=== PATIENT | female | born 1955 | race Caucasian/White ===

== ENCOUNTER 2020-06-01 05:40 | Outpatient (RCR) | payer MEDICARE ==
[~2020-06-01] VITALS: Ht 167.7 cm; Wt 73.6 kg
[~2020-06-01 05:40] MED LIST: AMLO5TAB9 PO; LEVO25TA5 PO; LISI1TAB25 PO; PRAV40TA2 PO; TURM538C PO; UBID200C16 PO; VENL75TA2 PO
[2020-06-05] MEDS ORDERED: CLIN150C2 PO (11:08)
[2020-06-05] MEDS ORDERED: HYDR-83 PO (11:08)
== END 2020-06-01 13:41 | disposition home or self-care (01) ==
LOC: PREOP 05:40
PROVIDERS: ATTEND Podiatrist Foot & Ankle Surgery
DX: Z01.812 Encounter for preprocedural laboratory examination (principal); Z20.828 Contact with and (suspected) exposure to other viral communicable diseases; M20.11 Hallux valgus (acquired), right foot
CPT/HCPCS: 87635

== ENCOUNTER 2020-06-05 07:59 | Day surgery (SDC) | payer MEDICARE ==
[2020-06-05] VITALS (11 sets, daily range): BP systolic 102–140; BP diastolic 63–91
[~2020-06-05] VITALS: Ht 167.7 cm; Wt 73.6 kg
[2020-06-05] MEDS ORDERED: BUPIVACAINE 0.5% 30 ML (SENSORCAINE) VIAL ONE (08:02)
[2020-06-05] MEDS ORDERED: DEXAMETHASONE 10 MG/ML (DECADRON) 1 ML VIAL ONE ×2 (08:02→09:56)
[2020-06-05] MEDS ORDERED: proPOfol 200 MG/20 ML (DIPRIVAN) VIAL IV ONE ×2 (08:39→08:40)
[2020-06-05] MEDS ORDERED: fentaNYL INJECTION 100 MCG/2 ML AMP ONE (08:40)
[2020-06-05] MEDS ORDERED: MIDAZOLAM 2 MG/2 ML (VERSED) VIAL ONE (08:40)
--- OUTSIDE RECORDS SUMMARY | 2020-06-05 08:41 | XMS REPORT ---
Author Author Ava Velasquez Organization [facility] Address [address] [place], [place] [id number] Care Team Providers Care Pigs Feet Cleaner Name Role Phone Sharon Velasquez PCP Sharon Velasquez PreferredProvider Allergies and Adverse Reactions Name Reaction Notes Augmentin Nausea and Vomiting prednisone Plan of Treatment Not available. Medications Active Name Start Date Estimated Completion Date SIG Co mments coenzyme Q10 100 mg oral capsule amlodipine 5 mg oral tablet take 1 tablet (5 mg) by oral route once daily vit b12 sublingal 1 dropper full under to ngue daily venlafaxine 75 mg oral capsule,extended release 24hr 10/09/2018 TAKE ONE CAPSULE BY MOUTH ONCE DAILY venlafaxine 75 mg oral capsule,extended release 24hr 11/01/2019 TAKE ONE CAPSULE BY MOUTH ONCE DAILY lisinopril-hydrochlorothiazide 20-12.5 mg oral tablet 01/24/2020 1T PO ONCE DAILY levothyroxine 25 mcg oral tablet 01/24/2020 TTD AM O N AN EMPTY STOMACH turmeric 400 mg oral capsule take 1 capsu le by oral route Name Start Date Expiration Date SIG Comments tramadol 50 mg oral tablet clonidine HCl 0.1 mg oral tablet alprazolam 0.5 mg oral tablet atenolol 100 mg oral tablet amlodipine 5 mg oral tablet lisinopril 40 mg oral tablet take 1 table t (40 mg) by oral route once daily ibuprofen 100 mg oral tablet naproxen sodium 220 mg oral capsule niacin oral potassium 99 mg oral tablet Calcium 500 oral triamcinolone acetonide 0.1 % topical cream 03/04/2016 apply a thin layer to the affected area(s) by topical route 2 times per day for no longer than 14 days fish oil 1200 mg oral capsule once daily cyclobenzaprine 10 mg oral tablet 03/25/2017 07/23/2017 take 1 tablet by oral route once a day (at bedtime) for 30 days muscle spasm Pt states she does not use it Tamiflu 75 mg oral capsule 12/23/2017 12/28/2017 take 1 capsule (75 mg) by oral route 2 times per day for 5 days Medrol (Aldair) 4 mg oral tablets,dose pack 07/01/2018 take as directed doxycycline monohydrate 100 mg oral capsule 07/01/201807/08 take 1 capsule by oral route 2 times a day for 7 days Vivlodex 5 mg oral capsule take 1 capsule (5 mg) by oral route once daily Bactrim DS 800-160 mg oral tablet 04/30/2019 05/03/2019 take 1 tablet by oral route 2 times a day for 3 days Keflex 500 mg oral capsule 05/19/2019 05/26/2019 take 1 capsule (500 mg) by oral route every 12 hours for 7 days hydrocodone-acetaminophen 5-325 mg oral tablet 05/19/2019 take 1 tablet by oral route every 6 hours as needed for pain for 7 days Discontinued Name Start Date Discontinued Date SIG Comments magnesium oral 06/05/2016 Tribenzor oral 06/05/2016 medication ch cipriano losartan-hydrochlorothiazide 100-25 mg oral tablet 03/31/2019 take 1 tablet by oral route once daily on recall niacin oral 05/29/2020 One-A-Day Womens Formula oral 01/02/2017 diclofenac sodium 75 mg oral tablet,delayed release (DR/EC) 09/18/2017 12/23/2017 take 1 tablet (75 mg) by oral route 2 times per day as needed pt states she does not use it promethazine-codeine 6.25-10 mg/5 mL oral syrup 12/23/2017 04/03/2018 take 5 milliliters by oral route every 6 hours as needed, not to exceed 30 mL in 24 hours fluticasone 50 mcg/actuation nasal spray,suspension 12/23/2017 04/03/2018 spray 1 spray (50 mcg) in each nostril by intranasal route 2 times per day pravastatin 40 mg oral tablet 05/29/2020 Lidoderm 5 % topical adhesive patch,medicated 01/05/201905/29/2020 apply 1 patch by transdermal route once daily (May wear up to 12hours.) Vivlodex 10 mg oral capsule 01/14/2019 05/29/2020 take 1 capsule (10 mg) by oral route once daily Medrol (Aldair) 4 mg oral tablets,dose pack 03/31/2019 05/29/2020 take as directed tizanidine 2 mg oral tablet 03/31/2019 05/29/2020 take 1 tablet (2 mg) by oral route every 8 hours as needed Synthroid 25 mcg oral tablet 04/20/2019 05/29/2020 alban e 1 tablet (25 mcg) by oral route every AM on an empty stomach ofloxacin 0.3 % ophthalmic (eye) drops 04/30/2019 05/29/2020 instill 1 drop into affected eye(s) by ophthalmic route 4 times per day Macrobid 100 mg oral capsule 05/14/2019 05/29/2020 alban e 1 capsule (100 mg) by oral route every 12 hours with food tramadol 50 mg oral tablet 05/17/2019 05/29/2020 take 1 tablet (50 mg) by oral route every 6 hours as needed prednisone 20 mg oral tablet 05/21/2019 05/29/2020 Alban e 1 tab daily x 3 days, then 1/2 tab daily x 3 days Problem List Description Status Onset Hyperlipidemia Active GERD (gastroesophageal reflux disease) Active Depressive disorder Active Anxiety disorder Active Essential Hypertension Active Elevated TSH Active 06/26/2016 Subclinical hypothyroidism Active 03/17/2017 Osteoarthritis of right hand, unspecified osteoarthritis typ e Active 11/21/2017 Acute pain of left shoulder Active 01/14/2019 Polyarthralgia Active 01/14/2019 Vital Signs Date Time BP-Sys(mm[Hg] BP-Nikki(mm[Hg]) HR(bpm) RR(rpm) Temp WT HT HC BMI BSA BMI Percentile O2 Sat(%) 05/29/2020 11:20:00 AM 124 mm[Hg] 82 mm[Hg] 81 {beats}/min 14 rpm 97.7 F 162.5 lbs 66 in 26.2279 kg/m2 1.8527 m2 98 % 05/19/2019 2:35:00 PM 144 mm[Hg] 86 mm[Hg] 85 {beats}/min 98.1 F 16 5.25 lbs 98 % 05/14/2019 8:56:00 AM 130 mm[Hg] 82 mm[Hg] 73 {beats}/min 14 rpm 97.9 F 164.5 lbs 97 % 04/30/2019 10:07:00 AM 140 mm[Hg] 90 mm[Hg] 84 {beats}/min 14 rpm 98.1 F 164 lbs 99 % 03/31/2019 10:05:00 AM 122 mm[Hg] 84 mm[Hg] 71 {beats}/min 14 rpm 97.9 F 165 lbs 97 % 01/14/2019 8:55:00 AM 126 mm[Hg] 82 mm[Hg] 80 {beats}/min 14 rpm 97.7 F 165.75 lbs 65 in 27.582 kg/m2 1.8569 m2 96 % 01/05/2019 9:05:00 AM 122 mm[Hg] 90 mm[Hg] 78 {beats}/min 20 rpm 97.7 F 165 lbs 97 % 07/01/2018 11:34:00 AM 144 mm[Hg] 88 mm[Hg] 76 {beats}/min 18 rpm 98.4 F 159.5 lbs 65 in 26.5419 kg/m2 1.8215 m2 98 % 06/08/2018 4:00:00 PM 136 mm[Hg] 82 mm[Hg] 83 {beats}/min 18 rpm 97.9 F 161.5 lbs 65.5 in 26.47 kg/m2 1.84 m2 97 % 05/04/2018 10:45:00 AM 122 mm[Hg] 78 mm[Hg] 77 {beats}/min 18 rpm 98.1 F 160.25 lbs 66 in 25.8648 kg/m2 1.8398 m2 97 % 04/03/2018 8:58:00 AM 128 mm[Hg] 72 mm[Hg] 76 {beats}/min 17 rpm 96.9 F 162.25 lbs 66 in 26.19 kg/m2 1.85 m2 98 % 12/23/2017 9:26:00 AM 138 mm[Hg] 68 mm[Hg] 111 {beats}/min 16 rpm 99.1 F 161 lbs 66 in 25.9858 kg/m2 1.8441 m2 96 % 08/21/2017 2:49:00 PM 128 mm[Hg] 72 mm[Hg] 80 {beats}/min 16 rpm 97 F 156 lbs 66 in 25.18 kg/m2 1.82 m2 98 % 03/25/2017 10:56:00 AM 132 mm[Hg] 86 mm[Hg] 72 {beats}/min 16 rpm 97.7 F 162 lbs 66 in 26.1472 kg/m2 1.8498 m2 97 % 01/02/2017 10:46:00 AM 128 mm[Hg] 78 mm[Hg] 76 {beats}/min 12 rpm 96.9 F 157.5 lbs 66 in 25.42 kg/m2 1.82 m2 99 % 06/26/2016 9:37:00 AM 140 mm[Hg] 80 mm[Hg] 76 {beats}/min 14 rpm 96.6 F 151.5 lbs 66 in 24.4525 kg/m2 1.7889 m2 99 % 06/04/2016 8:31:00 AM 110 mm[Hg] 62 mm[Hg] 75 {beats}/min 20 rpm 96.8 F 154 lbs 66 in 24.86 kg/m2 1.80 m2 98 % 03/04/2016 2:44:00 PM 91 {beats}/min 20 rpm 97.6 F 153 lbs 66 i n 24.6946 kg/m2 1.7977 m2 97 % 02/10/2016 12:44:00 PM 66 {beats}/min 20 rpm 97.2 F 154.8 lbs 99 % 04/27/2015 9:35:00 AM 120 mm[Hg] 60 mm[Hg] 73 {beats}/min 18 rpm 96.6 F 160.25 lbs 66 in 25.86 kg/m2 1.84 m2 97 % Social History Name Description Comments Alcohol Current every day Tobacco Former smoker History of Procedures Date Ordered Description Order Status 02/10/2016 12:00 AM THER/PROPH/DIAG INJ SC/IM Reviewed 02/10/2016 12:00 AM Decadron, Per 1 Mg [facility]# [address]-17 Re viewed 02/10/2016 12:00 AM Depo-Medrol 40mg Reviewed 06/11/2016 12:00 AM ROUTINE VENIPUNCTURE Reviewed 06/11/2016 12:00 AM GENERAL HEALTH PANEL Reviewed 06/11/2016 12:00 AM LIPID PANEL Reviewed 06/11/2016 12:00 AM ALBUMIN URINE MICROALBUMIN RAFAELATIVE Moe virk 06/18/2016 12:00 AM ROUTINE VENIPUNCTURE Reviewed 06/18/2016 12:00 AM ASSAY THYROID STIM HORMONE Reviewed 06/18/2016 12:00 AM ASSAY OF FREE THYROXINE Reviewed 11/20/2016 12:00 AM COLLECTION VENOUS BLOOD VENIPUNCTURE Rev iewed 12/27/2016 12:00 AM ROUTINE VENIPUNCTURE Reviewed 03/24/2017 12:00 AM ROUTINE VENIPUNCTURE Reviewed 03/24/2017 12:00 AM COMPLETE CBC W/AUTO DIFF WBC Reviewed 03/24/2017 12:00 AM COMPREHEN METABOLIC PANEL Reviewed 03/24/2017 12:00 AM ASSAY THYROID STIM HORMONE Reviewed 03/24/2017 12:00 AM ASSAY OF FREE THYROXINE Reviewed 03/24/2017 12:00 AM C-REACTIVE PROTEIN Reviewed 03/24/2017 12:00 AM RBC SED RATE AUTOMATED Reviewed 12/23/2017 10:03 AM INFLUENZA A/B AG EIA Reviewed 04/03/2018 12:00 AM CHEST X-RAY 2VW FRONTAL&LATL Reviewed 04/03/2018 12:00 AM MAMMOGRAPHY SCREENING, BILATERAL Reviewe d 05/04/2018 12:00 AM US BREAST UNI REAL TIME WITH IMAGE LIMIT ED Reviewed 05/04/2018 12:00 AM COMPLETE CBC W/AUTO DIFF WBC Reviewed 05/04/2018 12:00 AM COMPREHEN METABOLIC PANEL Reviewed 05/04/2018 12:00 AM ASSAY THYROID STIM HORMONE Reviewed 05/04/2018 12:00 AM LIPID PANEL Reviewed 05/04/2018 12:00 AM ASSAY OF BLOOD LIPOPROTEIN Reviewed 05/04/2018 12:00 AM ASSAY OF FREE THYROXINE Reviewed 01/05/2019 12:00 AM RADEX SHOULDER COMPLETE MINIMUM 2 VIEWS Reviewed 01/14/2019 12:00 AM ROUTINE VENIPUNCTURE Reviewed 01/14/2019 12:00 AM URINALYSIS AUTO W/SCOPE Reviewed 01/14/2019 12:00 AM COMPLETE CBC W/AUTO DIFF WBC Reviewed 01/14/2019 12:00 AM COMPREHEN METABOLIC PANEL Reviewed 01/14/2019 12:00 AM RBC SED RATE AUTOMATED Reviewed 01/14/2019 12:00 AM C-REACTIVE PROTEIN Reviewed 01/14/2019 12:00 AM ANTINUCLEAR ANTIBODIES Reviewed 01/14/2019 12:00 AM ASSAY OF BLOOD/URIC ACID Reviewed 01/14/2019 12:00 AM CCP ANTIBODY Reviewed 01/14/2019 12:00 AM RHEUMATOID FACTOR QUANT Reviewed 01/15/2019 12:00 AM ASSAY THYROID STIM HORMONE Reviewed 01/20/2019 12:00 AM URNLS DIP STICK/TABLET REAGENT AUTO MICR OSCOPY Reviewed 03/31/2019 12:00 AM ASSAY OF TOTAL THYROXINE Reviewed 03/31/2019 12:00 AM ASSAY OF THYROID (T3 OR T4) Reviewed 04/30/2019 10:32 AM URINALYSIS AUTO W/O SCOPE Reviewed 04/30/2019 12:00 AM URINE CULTURE/COLONY COUNT Reviewed 04/30/2019 12:00 AM URINE BACTERIA CULTURE Reviewed 05/14/2019 9:04 AM URINALYSIS AUTO W/O SCOPE Reviewed 05/14/2019 12:00 AM URINE BACTERIA CULTURE Reviewed 05/14/2019 12:00 AM RADEX FOOT COMPLETE MINIMUM 3 VIEWS Revi ewed 05/19/2019 12:00 AM RBC SED RATE AUTOMATED Reviewed 05/19/2019 12:00 AM COMPLETE CBC W/AUTO DIFF WBC Reviewed 05/19/2019 12:00 AM ASSAY OF BLOOD/URIC ACID Reviewed 05/19/2019 12:00 AM COMPREHEN METABOLIC PANEL Reviewed Results Summary Date and Description Results 06/11/2016 3:07 PM WBC 6.9 RBC 4.03 HGB 13.60 g /dLHCT 40.50 %MCV 101.0 fLMCH 33.70 pgMCHC 33.60 g/dLRDW SD 48 RDW CV 12.70 %MPV 10.0 fLPLT 338 NRBC# 0.00 NRBC% 0.0 %NEUT 46.90 %%LYMP 42.20 %%MONO 7.30 %%EOS 3.20 %%BASO 0.40 %#NEUT 3.23 #LYMP 2.90 #MONO 0.50 #EOS 0.22 #BASO 0.03 MANUAL DIFF NOT IND MICROALBUMIN UR 5.0 ug/mLGLUCOSE 95.0 mg/dLSODIUM 139.0 mmol/LPOTASSIUM 4.70 mmol/LCHLORIDE 101.0 mmol/LCO2 29.0 mmol/LBUN 13.0 mg/dLCREATININE 0.90 mg/dLSGOT/AST 17.0 IU/LSGPT/ALT 16.0 IU/LALK PHOS 82.0 IU/LTOTAL PROTEIN 6.90 g/dLALBUMIN 4.30 g/dLTOTAL BILI 0.40 mg/dLCALCIUM 9.60 mg/dLAGE 61 GFR NonAA 63 GFR AA 76 eGFR >60 mL/min/1.73 m2eGFR AA* >60 TRIGLYCERIDES 276.0 mg/dLCHOLESTEROL 268.0 mg/dLHDL 49.0 mg/dLTOT CHOL/HDL 5.5 LDL (CALC) 164.0 mg/dLTSH 5.980 uIU/mL 06/18/2016 3:14 PM FREE T4 0.75 TSH 4.610 uIU/m L 03/24/2017 3:52 PM FREE T4 0.77 TSH 5.620 uIU/m L 03/24/2017 3:53 PM WBC 6.9 RBC 3.86 HGB 12.90 g /dLHCT 38.60 %MCV 100.0 fLMCH 33.40 pgMCHC 33.40 g/dLRDW SD 49 RDW CV 13.20 %MPV 10.10 fLPLT 310 NRBC# 0.00 NRBC% 0.0 %NEUT 44.70 %%LYMP 44.40 %%MONO 6.80 %%EOS 3.30 %%BASO 0.70 %#NEUT 3.10 #LYMP 3.08 #MONO 0.47 #EOS 0.23 #BASO 0.05 MANUAL DIFF NOT IND C REACTIVE PROTEIN <0.5 MG/DLGLUCOSE 99.0 mg/dLSODIUM 143.0 mmol/LPOTASSIUM 4.50 mmol/LCHLORIDE 105.0 mmol/LCO2 28.0 mmol/LBUN 13.0 mg/dLCREATININE 0.90 mg/dLS GOT/AST 19.0 IU/LSGPT/ALT 21.0 IU/LALK PHOS 62.0 IU/LTOTAL PROTEIN 6.80 g/dLALBUMIN 4.10 g/dLTOTAL BILI 0.40 mg/dLCALCIUM 9.10 mg/dLAGE 62 GFR NonAA 63 GFR AA 76 eGFR >60 mL/min/1.73 m2eGFR AA* >60 SEDRATE 14.0 mm/hr 12/23/2017 10:03 AM Influenza A POSITIVE Influen za B NEGATIVE 05/06/2018 9:10 AM GLUCOSE 104.0 mg/dLSODIUM 14 1.0 mmol/LPOTASSIUM 3.90 mmol/LCHLORIDE 104.0 mmol/LCO2 27.0 mmol/LBUN 17.0 mg/dLCREATININE 0.80 mg/dLSGOT/AST 23.0 IU/LSGPT/ALT 23.0 IU/LALK PHOS 76.0 IU/LTOTAL PROTEIN 7.10 g/dLALBUMIN 4.30 g/dLTOTAL BILI 0.50 mg/dLCALCIUM 9.90 mg/dLAGE 63 GFR NonAA 72 GFR AA 87 eGFR 72 eGFR AA* >60 TRIGLYCERIDES 161.0 mg/dLCHOLESTEROL 201.0 mg/dLHDL 50.0 mg/dLTOT CHOL/HDL 4.0 LDL 118.0 mg/dLWBC 6.0 RBC 3.99 HGB 13.20 g/dLHCT 39.20 %MCV 98.0 fLMCH 33.10 pgMCHC 33.70 g/dLRDW SD 46 RDW CV 12.90 %MPV 9.10 fLPLT 292 NRBC# 0.00 NRBC% 0.0 %NEUT 41.80 %%LYMP 45.10 %%MONO 8.0 %%EOS 4.20 %%BASO 0.70 %#NEUT 2.51 #LYMP 2.70 #MONO 0.48 #EOS 0.25 #BASO 0.04 MANUAL DIFF NOT IND FREE T4 0.78 TSH 4.90 uIU/mL 01/14/2019 9:44 AM SEDRATE 18 RA Factor <15.0 G LUCOSE 101 SODIUM 139 POTASSIUM 3.9 CHLORIDE 101.0 mmol/LCO2 28 BUN 17.0 mg/dLCREATININE 0.80 mg/dLSGOT/AST 23 SGPT/ALT 22 ALK PHOS 78 TOTAL PROTEIN 7.6 ALBUMIN 4.9 TOTAL BILI 0.5 CALCIUM 10.10 mg/dLAGE 63 GFR NonAA 72 GFR AA 87 eGFR 72 eGFR AA* >60 mL/min/1.73 m2C REACTIVE PROTEIN <0.5 MG/DLURIC ACID 6.2 WBC 6.3 RBC 4.23 HGB 13.90 g/dLHCT 41.70 %MCV 99.0 fLMCH 32.90 pgMCHC 33.30 g/dLRDW SD 46 fLRDW CV 12.70 %MPV 9.80 fLPLT 338 NRBC# 0.00 NRBC% 0.0 %NEUT 47.1 %LYMP 41.0 %MONO 7.2 %EOS 3.8 %BASO 0.6 #NEUT 2.94 #LYMP 2.56 #MONO 0.45 #EOS 0.24 #BASO 0.04 MANUAL DIFF NOT IND COLOR YELLOW APPEARANCE CLEAR SPEC GRAV 1.020 pH 6.0 PROTEIN NEGATIVE GLUCOSE NEGATIVE KETONE NEGATIVE BILIRUBIN NEGATIVE BLOOD TRACE-INTACT NITRITE NEGATIVE LEUK SCREEN SMALL WBC/HPF 0-5 RBC/HPF NEGATIVE CASTS/LPF NEGATIVE CRYSTALS NEGATIVE MUCOUS THRDS 1+ BACTERIA 1+ EPITH CELLS 1+ SQUAMOUS TRICHOMONAS NEGATIVE YEAST NEGATIVE CULT SET UP? YES TSH 6.66 CCP Antibodies IgG/IgA 5 Antinuclear Antibodies,IFA Negative 01/20/2019 3:49 PM COLOR YELLOW APPEARANCE SL C LOUDY SPEC GRAV 1.015 pH 7.5 PROTEIN NEGATIVE GLUCOSE NEGATIVE KETONE NEGATIVE BILIRUBIN NEGATIVE BLOOD NEGATIVE NITRITE NEGATIVE LEUK SCREEN NEGATIVE WBC/HPF NEGATIVE RBC/HPF NEGATIVE CASTS/LPF NEGATIVE CRYSTALS NEGATIVE MUCOUS THRDS NEGATIVE BACTERIA FEW EPITH CELLS 2++ SQUAMOUS TRICHOMONAS NEGATIVE YEAST NEGATIVE CULT ORDERED YES 03/31/2019 10:32 AM FREE T4 0.79 TSH 1.65 04/30/2019 10:32 AM Clarity Ur yellow Urine-[place] r cloudy Glucose Ur-sCnc negative Bilirub Ur Ql negative Ketones Ur Ql Strip negative Sp Gr Ur Qn 1.025 Hgb Ur Ql Strip moderate pH Ur-LsCnc 5.5 Prot Ur Ql Strip negative Urobilinogen Ur-mCnc 0.2 Nitrite Ur Ql Strip negative WBC # Ur small 05/14/2019 9:04 AM Clarity Ur slightly Urine-Co shira dark Glucose Ur-sCnc negative Bilirub Ur Ql small Ketones Ur Ql Strip negative Sp Gr Ur Qn 1.025 Hgb Ur Ql Strip small pH Ur-LsCnc 5.5 Prot Ur Ql Strip 30 Urobilinogen Ur-mCnc 0.2 Nitrite Ur Ql Strip negative WBC # Ur trace 05/19/2019 10:06 AM URIC ACID 5.8 WBC 7.5 RBC 3. 97 HGB 13.40 g/dLHCT 40.20 %MCV 101.0 fLMCH 33.80 pgMCHC 33.30 g/dLRDW SD 48 fLRDW CV 12.70 %MPV 10.70 fLPLT 361 NRBC# 0.00 NRBC% 0.0 %NEUT 51.8 %LYMP 37.2 %MONO 7.4 %EOS 2.8 %BASO 0.5 #NEUT 3.89 #LYMP 2.80 #MONO 0.56 #EOS 0.21 #BASO 0.04 MANUAL DIFF NOT IND GLUCOSE 101 SODIUM 142 POTASSIUM 3.9 CHLORIDE 102.0 mmol/LCO2 29 BUN 16.0 mg/dLCREATININE 0.850 mg/dLSGOT/AST 20 SGPT/ALT 16 ALK PHOS 83 TOTAL PROTEIN 7.3 ALBUMIN 4.4 TOTAL BILI 0.3 CALCIUM 9.90 mg/dLAGE 64 GFR NonAA 67 GFR AA 81 eGFR 67 eGFR AA* >60 mL/min/1.73 [id number] History Of Immunizations Name Date Admin Mfg Name Mfg Code Trade Name Lot# Route Inj Vis Given Vis Pub CVX Influenza 10/15/2019 Not Entered NE Fluad [id number] Intramuscular R ight Arm 11/12/2019 11/24/2019 135 History of Past Illness Name Date of Onset Comments Anxiety disorder Depressive disorder Essential Hypertension GERD (gastroesophageal reflux disease) Hyperlipidemia Elevated TSH 06/26/2016 Subclinical hypothyroidism 03/17/2017 currently asy mptomaticrecommend repeating TSH and free T4 in six months Osteoarthritis of right hand, unspecified osteoarthritis typ e 11/21/2017 Last Mammogram 04/03/18 04/03/18--Negative Mastalgia 07/22/18 maryann luevano w / trial of lidoderm she will f/u in 3 mo. Acute pain of left shoulder 01/14/2019 Polyarthralgia 01/14/2019 Hyperlipidemia Apr 27 2015 9:37AM GERD (gastroesophageal reflux disease) Apr 27 2015 9:37AM Depressive Disorder Apr 27 2015 9:37AM Anxiety disorder Apr 27 2015 9:37AM Essential Hypertension Apr 27 2015 9:37AM Contact Dermatitis Feb 10 2016 12:49PM Allergic contact dermatitis due to plants, except food Feb 222015 2:46PM Depressive Disorder Jun 04 2016 8:33AM Essential hypertension Jun 11 2016 8:23AM Screening for lipid disorders Jun 11 2016 8:23AM Abnormal thyroid function test Jun 18 2016 11:11AM Elevated TSH Jun 26 2016 9:40AM Hypertension Nov 20 2016 2:02PM Hyperlipemia Nov 20 2016 2:02PM Hypertension Dec 27 2016 8:15AM Hyperlipidemia Dec 27 2016 8:15AM Hypothyroidism, Acquired Dec 27 2016 8:15AM Subclinical hypothyroidism Jan 02 2017 10:49AM Abnormal thyroid function test Mar 24 2017 11:28AM Headache Mar 24 2017 11:28AM Acute intractable headache, unspecified headache type Mar 25 2017 10:58AM Osteoarthritis of right hand, unspecified osteoarthrit is type Aug 21 2017 2:52PM Influenza A Dec 23 2017 9:30AM Mastodynia of right breast Apr 03 2018 9:01AM Chest wall pain Apr 03 2018 9:01AM Right Mastodynia Apr 03 2018 9:01AM Breast Mass May 04 2018 10:48AM Right Mastodynia May 04 2018 10:48AM Subclinical hypothyroidism May 04 2018 11:40AM Hyperlipidemia May 04 2018 11:40AM Essential Hypertension May 04 2018 11:40AM Medication monitoring encounter May 04 2018 11:40AM Right Mastodynia Jun 09 2018 3:07PM Toxic effect of venom of other arthropod , accidental (unintentional), initial encounter Jul 01 2018 11:35AM Pain in joint of left shoulder Jan 05 2019 9:08AM Tendinitis of left rotator cuff Jan 05 2019 9:08AM Polyarthralgia Jan 14 2019 8:58AM Acute pain of left shoulder Jan 14 2019 8:58AM Polyarthralgia Jan 14 2019 10:11AM Medication monitoring encounter Jan 14 2019 10:11AM Polyarthralgia Jan 15 2019 12:56PM Hematuria Jan 20 2019 11:47AM Lumbar strain Mar 31 2019 10:08AM Hypothyroid Mar 31 2019 10:08AM Hypertension Mar 31 2019 10:08AM Cystitis, Acute Apr 30 2019 10:09AM Acute bacterial conjunctivitis of left eye Apr 30 2019 10:09 AM Pyuria May 14 2019 8:58AM Foot pain, right May 14 2019 8:58AM Joint pain May 19 2019 2:38PM Joint swelling May 19 2019 2:38PM Right foot pain May 19 2019 2:38PM Surgical Risk Stratification (Preoperative Examination) May 29 2020 11:29AM Payers Insurance Name Company Name Plan Name Plan Number Policy Number Jimmie cy Group Number Start Date Medicare RH Medicare [facility] [id number] N/ A BC[employer] [place] [id number] [facility], 2015 Medicare Part A Medicare - Lab/Xray [id number] N/A Medicare Part B Medicare [facility] [id number] N/A [employer] [place] void N/A [employer] [place] void N/A History of Encounters Visit Date Visit Type Provider 05/29/2020 Office visit Sharon COLE RN 09/02/2019 [facility] Mery Godfrey MD 05/19/2019 Office visit Sharon COLE RN 05/14/2019 Office visit Sharon COLE RN 04/30/2019 Office visit Sharon COLE RN 03/31/2019 Office visit Sharon COLE RN 01/20/2019 Laboratory Candace Farias [employer] 01/14/2019 Office visit Candace Farias [employer] 01/05/2019 Office visit Candace Farias [employer] 07/01/2018 Office visit Candace Farias [employer] 06/08/2018 Office visit Candace Farias [employer] 05/04/2018 Office visit Candace Farias [employer] 04/03/2018 Office visit Candace Farias [employer] 12/23/2017 Office visit LIZETTE HOFFMAN DIETITIAN ASSISTANT 08/21/2017 Office visit Candace Farias [employer] 03/25/2017 Office visit Candace Farias [employer] 03/24/2017 Laboratory Candace Farias [employer] 01/02/2017 Office visit Candace Farias [employer] 12/27/2016 Laboratory Candace Farias [employer] 09/30/2016 Laboratory Candace Farias [employer] 06/26/2016 Office visit Candace Farias [employer] 06/18/2016 Laboratory LIZETTE HOFFMAN DIETITIAN ASSISTANT 06/11/2016 Laboratory Candace Farias [employer] 06/04/2016 Office visit Candace Farias [employer] 03/04/2016 Office visit Candace Farias [employer] 02/10/2016 Office visit Alexandra Gil DIETITIAN ASSISTANT 04/27/2015 Office visit LIZETTE HOFFMAN DIETITIAN ASSISTANT 11/10/2014 Office visit De Kevin MD
--- OUTSIDE RECORDS SUMMARY | 2020-06-05 08:42 | XMS REPORT ---
Author Ava Taylor Organization [facility] Address [address] [place], [place] [id number] Care Team Providers Care Manager Assessment Name Role Phone Sharon Velasquez PCP Sharon Velasquez PreferredProvider Allergies and Adverse Reactions Name Reaction Notes Augmentin Nausea and Vomiting prednisone Plan of Treatment Planned Activity Comments Planned Date Planned Time Plan/Goal ESR 05/19/2019 12:00 AM CBC W/ AUTO DIFF (RFLX MAN DIFF IF IND). 05/19/2019 12:00 AM URIC ACID. 05/19/2019 12:00 AM CMP 05/19/2019 12:00 AM Medications Active Name Start Date Estimated Completion Date SIG Co mments coenzyme Q10 100 mg oral capsule amlodipine 5 mg oral tablet take 1 tablet (5 mg) by oral route once daily niacin oral vit b12 sublingal 1 dropper full under to ngue daily pravastatin 40 mg oral tablet venlafaxine 75 mg oral capsule,extended release 24hr 10/09/2018 TAKE ONE CAPSULE BY MOUTH ONCE DAILY Lidoderm 5 % topical adhesive patch,medicated 01/05/2019 apply 1 patch by transdermal route once daily (May wear up to 12hours.) Vivlodex 10 mg oral capsule 01/14/2019 take 1 capsule (10 mg) by oral route once daily lisinopril-hydrochlorothiazide 20-12.5 mg oral tablet 03/31/2019 06/29/2019 take 1 tablet by oral route once daily for 30 days Medrol (Aldair) 4 mg oral tablets,dose pack 03/31/2019 take as directed tizanidine 2 mg oral tablet 03/31/2019 take 1 tablet (2 mg) by oral route every 8 hours as needed Synthroid 25 mcg oral tablet 04/20/2019 alban e 1 tablet (25 mcg) by oral route every AM on an empty stomach ofloxacin 0.3 % ophthalmic (eye) drops 04/30/2019 instill 1 drop into affected eye(s) by ophthalmic route 4 times per day Macrobid 100 mg oral capsule 05/14/2019 alban e 1 capsule (100 mg) by oral route every 12 hours with food tramadol 50 mg oral tablet 05/17/2019 take 1 tablet (50 mg) by oral route every 6 hours as needed Keflex 500 mg oral capsule 05/19/2019 05/26/2019 take 1 capsule (500 mg) by oral route every 12 hours for 7 days prednisone 20 mg oral tablet 05/19/2019 Take 1 tab b y mouth BID for 5 days hydrocodone-acetaminophen 5-325 mg oral tablet 05/19/2019 take 1 tablet by oral route every 6 hours as needed for pain for 7 days Name Start Date Expiration Date SIG Comments [...] 2 times a day for 3 days Discontinued Name Start Date Discontinued Date SIG Comments magnesium oral 06/05/2016 Tribenzor oral 06/05/2016 medication ch cipriano losartan-hydrochlorothiazide 100-25 mg oral tablet 03/31/2019 take 1 tablet by oral route once daily on recall One-A-Day Womens Formula oral 01/02/2017 diclofenac sodium [...] by intranasal route 2 times per day Problem List Description Status Onset Hyperlipidemia Active [...] HC BMI BSA BMI Percentile O2 Sat(%) 05/19/2019 2:35:00 PM 144 mmHg 86 mmHg 85 bpm 98.1 F 165.25 lbs 98 % 05/14/2019 8:56:00 AM 130 mmHg 82 mmHg 73 bpm 14 rpm 97.9 F 164.5 lbs 97 % 04/30/2019 10:07:00 AM 140 mmHg 90 mmHg 84 bpm 14 rpm 98.1 F 164 lbs 99 % 03/31/2019 10:05:00 AM 122 mmHg 84 mmHg 71 bpm 14 rpm 97.9 F 165 lbs 97 % 01/14/2019 8:55:00 AM 126 mmHg 82 mmHg 80 bpm 14 rpm 97.7 F 165.75 lbs 65 i n 27.582 kg/m 1.8569 m 96 % 01/05/2019 9:05:00 AM 122 mmHg 90 mmHg 78 bpm 20 rpm 97.7 F 165 lbs 97 % 07/01/2018 11:34:00 AM 144 mmHg 88 mmHg 76 bpm 18 rpm 98.4 F 159.5 lbs 65 in 26.5419 kg/m 1.8215 m 98 % 06/08/2018 4:00:00 PM 136 mmHg 82 mmHg 83 bpm 18 rpm 97.9 F 161.5 lbs 65.5 in 26.47 kg/m2 1.84 m2 97 % 05/04/2018 10:45:00 AM 122 mmHg 78 mmHg 77 bpm 18 rpm 98.1 F 160.25 lbs 66 in 25.8648 kg/m 1.8398 m 97 % 04/03/2018 8:58:00 AM 128 mmHg 72 mmHg 76 bpm 17 rpm 96.9 F 162.25 lbs 66 i n 26.19 kg/m2 1.85 m2 98 % 12/23/2017 9:26:00 AM 138 mmHg 68 mmHg 111 bpm 16 rpm 99.1 F 161 lbs 66 in 25.9858 kg/m 1.8441 m 96 % 08/21/2017 2:49:00 PM 128 mmHg 72 mmHg 80 bpm 16 rpm 97 F 156 lbs 66 in 25.18 kg/m2 1.82 m2 98 % 03/25/2017 10:56:00 AM 132 mmHg 86 mmHg 72 bpm 16 rpm 97.7 F 162 lbs 66 in 26.1472 kg/m 1.8498 m 97 % 01/02/2017 10:46:00 AM 128 mmHg 78 mmHg 76 bpm 12 rpm 96.9 F 157.5 lbs 66 in 25.42 kg/m2 1.82 m2 99 % 06/26/2016 9:37:00 AM 140 mmHg 80 mmHg 76 bpm 14 rpm 96.6 F 151.5 lbs 66 in 24.4525 kg/m 1.7889 m 99 % 06/04/2016 8:31:00 AM 110 mmHg 62 mmHg 75 bpm 20 rpm 96.8 F 154 lbs 66 in 24.86 kg/m2 1.80 m2 98 % 03/04/2016 2:44:00 PM 91 bpm 20 rpm 97.6 F 153 lbs 66 in 24.6946 kg/m 1.7977 m 97 % 02/10/2016 12:44:00 PM 66 bpm 20 rpm 97.2 F 154.8 lbs 99 % 04/27/2015 9:35:00 AM 120 mmHg 60 mmHg 73 bpm 18 rpm 96.6 F 160.25 lbs 66 in 25.86 kg/m2 1.84 m2 97 % Social History Name Description Comments Alcohol Current every day Tobacco Former smoker History of Procedures Date Ordered Description Order Status 02/10/2016 12:00 AM THER/PROPH/DIAG INJ SC/IM Reviewed 02/10/2016 12:00 AM Decadron, Per 1 Mg [facility]# [id number] Re viewed 02/10/2016 12:00 AM Depo-Medrol 40mg Reviewed 06/11/2016 12:00 AM ROUTINE VENIPUNCTURE Reviewed 06/11/2016 12:00 AM GENERAL HEALTH PANEL Reviewed 06/11/2016 12:00 AM LIPID PANEL Reviewed 06/11/2016 12:00 AM ALBUMIN URINE MICROALBUMIN QUANTIATIVE R eviewed 06/18/2016 12:00 AM ROUTINE VENIPUNCTURE Reviewed 06/18/2016 [...] Reviewed 05/14/2019 12:00 AM URINE BACTERIA CULTURE Returned 05/14/2019 12:00 AM RADEX FOOT COMPLETE MINIMUM 3 VIEWS Retu rned Results Summary Date and Description Results 06/11/2016 [...] NonAA 63 GFR AA 76 eGFR >60 mL/min/1.73meGFR AA* >60 TRIGLYCERIDES 276.0 mg/dLCHOLESTEROL 268.0 mg/dLHDL [...] DIFF NOT IND C REACTIVE PROTEIN <0.5 mg/LGLUCOSE 99.0 mg/dLSODIUM 143.0 mmol/LPOTASSIUM 4.50 mmol/LCHLORIDE 105.0 mmol/LCO2 28.0 mmol/LBUN 13.0 mg/dLCREATININE 0.90 mg/dLSG OT/AST 19.0 IU/LSGPT/ALT 21.0 IU/LALK PHOS 62.0 IU/LTOTAL PROTEIN 6.80 g/dLALBUMIN 4.10 g/dLTOTAL BILI 0.40 mg/dLCALCIUM 9.10 mg/dLAGE 62 GFR NonAA 63 GFR AA 76 eGFR >60 mL/min/1.73meGFR AA* >60 SEDRATE 14.0 mm/hr 12/23/2017 10:03 [...] LUCOSE 101 SODIUM 139 POTASSIUM 3.9 CHLORIDE 101 CO2 28 BUN 17 CREATININE 0.8 SGOT/AST 23 SGPT/ALT 22 ALK PHOS 78 TOTAL PROTEIN 7.6 ALBUMIN 4.9 TOTAL BILI 0.5 CALCIUM 10.1 AGE 63 GFR NonAA 72 GFR AA 87 eGFR 72 eGFR AA* >60 C REACTIVE PROTEIN <0.5 URIC ACID 6.2 WBC 6.3 RBC 4.23 HGB 13.9 HCT 41.7 MCV 99 MCH 32.9 MCHC 33.3 RDW SD 46 RDW CV 12.7 MPV 9.8 PLT 338 NRBC# 0.00 NRBC% 0.0 %NEUT 47.1 [...] 1.65 04/30/2019 10:32 AM Clarity Ur yellow Urine-[place] r cloudy Glucose Ur-sCnc negative Bilirub Ur [...] Ql Strip negative WBC # Ur trace History Of Immunizations Not available. History of Past Illness Name Date of [...] Right foot pain May 19 2019 2:38PM Payers Insurance Name Company Name Plan Name Plan Number Policy Number Jimmie cy Group Number Start Date Medicare RHC Medicare RHC [id number] N/ A Medicare Part A Medicare - Lab/Xray [id number] N/A BC[employer] [place] void N/A [place] void N/A [employer] [place] [id number] Fr combs, March 03, 2015 History of Encounters Visit Date Visit Type Provider 05/19/2019 Office visit Sharon COLE RN 05/14/2019 Office visit Sharon COLE RN 04/30/2019 Office visit Sharon COLE RN 03/31/2019 Office visit Sharon COLE RN 01/20/2019 Laboratory Candace REYNOLDS 01/14/2019 Office visit Candace REYNOLDS 01/05/2019 Office visit Candace REYNOLDS 07/01/2018 Office visit Candace REYNOLDS 06/08/2018 Office visit Candace REYNOLDS 05/04/2018 Office visit Candace REYNOLDS 04/03/2018 Office visit Candace REYNOLDS 12/23/2017 Office visit LIZETTE HOFFMAN APRN 08/21/2017 Office visit Candace REYNOLDS 03/25/2017 Office visit Candace REYNOLDS 03/24/2017 Laboratory Candace REYNOLDS 01/02/2017 Office visit Candace REYNOLDS 12/27/2016 Laboratory Candace REYNOLDS 09/30/2016 Laboratory Candace MEADOWSP 06/26/2016 Office visit Candace Farias POWERHOUSE OILER 06/18/2016 Laboratory LIZETTE HOFFMAN SURGICAL TECHNOLOGY INSTRUCTOR 06/11/2016 Laboratory Candace Farias POWERHOUSE OILER 06/04/2016 Office visit Candace MEADOWSP 03/04/2016 Office visit Candace MEADOWSP 02/10/2016 Office visit Alexandra Gil SURGICAL TECHNOLOGY INSTRUCTOR 04/27/2015 Office visit LIZETTE HOFFMAN SURGICAL TECHNOLOGY INSTRUCTOR 11/10/2014 Office visit De Kevin MD
--- OUTSIDE RECORDS SUMMARY | 2020-06-05 08:42 | XMS REPORT ---
Author Ava Taylor Organization [facility] Address [address] [place], [place] [address] Care Team Providers Care Hot Die Press Operator Name Role Phone Sharon Velasquez PCP Sharon [...] 02/10/2016 12:00 AM Decadron, Per 1 Mg [facility]# [id number] Re viewed 02/10/2016 12:00 AM Depo-Medrol 40mg [...] 1.65 04/30/2019 10:32 AM Clarity Ur yellow Urine-[place] r cloudy Glucose Ur-sCnc negative Bilirub Ur [...] 2:38PM Joint swelling May 19 2019 2:38PM Payers Insurance Name Company Name Plan Name Plan Number Policy Number Jimmie cy Group Number Start Date Medicare RHC Medicare RHC [id number] N/ A Medicare Part A Medicare - Lab/Xray [id number] N/A BC[employer] [place] void N/A [place] [place] void N/A [employer] [place] [id number] Fr combs, March 03, 2015 History of [...] 12/27/2016 Laboratory Candace REYNOLDS 09/30/2016 Laboratory Candace REYNOLDS 06/26/2016 Office visit Candace Farias RAILROAD WHEELS AND AXLE INSPECTOR 06/18/2016 Laboratory LIZETTE HOFFMAN HEAD OF DIGITAL 06/11/2016 Laboratory Candace Farias RAILROAD WHEELS AND AXLE INSPECTOR 06/04/2016 Office visit Candace Farias RAILROAD WHEELS AND AXLE INSPECTOR 03/04/2016 Office visit Candace Farias RAILROAD WHEELS AND AXLE INSPECTOR 02/10/2016 Office visit Alexandra Gil HEAD OF DIGITAL 04/27/2015 Office visit LIZETTE HOFFMAN HEAD OF DIGITAL 11/10/2014 Office visit De Kevin MD
--- OUTSIDE RECORDS SUMMARY | 2020-06-05 08:42 | XMS REPORT ---
Author Ava Taylor Organization [facility] Address [address] [place], [place] [id number] Care Team Providers Care Staff [employer] Information Center Officer Name Role Phone Sharon Velasquez PCP Sharon Velasquez PreferredProvider Allergies and Adverse Reactions Name Reaction Notes Augmentin Nausea and Vomiting prednisone Plan of Treatment Planned Activity Comments Planned Date Planned Time Plan/Goal Culture urine 04/30/2019 12:00 AM Culture urine 04/30/2019 12:00 AM Medications Active Name Start Date [...] route every AM on an empty stomach Bactrim DS 800-160 mg oral tablet 04/30/2019 05/03/2019 take 1 tablet by oral route 2 times a day for 3 days ofloxacin 0.3 % ophthalmic (eye) drops 04/30/2019 instill 1 drop into affected eye(s) by ophthalmic route 4 times per day Name Start Date Expiration Date SIG Comments [...] (5 mg) by oral route once daily Discontinued Name Start Date Discontinued Date SIG Comments magnesium oral 06/05/2016 Tribenzor oral 06/05/2016 medication cipriano losartan-hydrochlorothiazide 100-25 mg oral tablet 03/31/2019 [...] HC BMI BSA BMI Percentile O2 Sat(%) 04/30/2019 10:07:00 AM 140 mmHg 90 mmHg [...] rpm 96.6 F 160.25 lbs 66 in 25.8648 kg/m 1.84 m2 97 % Social History Name Description Comments Alcohol Current every day Tobacco Former smoker History of Procedures Date Ordered Description Order Status 02/10/2016 12:00 AM THER/PROPH/DIAG INJ SC/IM Reviewed 02/10/2016 12:00 AM Decadron, Per 1 Mg [facility]# [id number] Re viewed 02/10/2016 12:00 AM Depo-Medrol 40mg [...] 10:32 AM URINALYSIS AUTO W/O SCOPE Reviewed Results Summary Date and Description Results [...] 1.65 04/30/2019 10:32 AM Clarity Ur yellow Urine-[place] r cloudy Glucose Ur-sCnc negative Bilirub Ur Ql negative Ketones Ur Ql Strip negative Sp Gr Ur Qn 1.025 Hgb Ur Ql Strip moderate pH Ur-LsCnc 5.5 Prot Ur Ql Strip negative Urobilinogen Ur-mCnc 0.2 Nitrite Ur Ql Strip negative WBC # Ur small History Of Immunizations Not available. History of [...] left eye Apr 30 2019 10:09 AM Payers Insurance Name Company Name Plan Name Plan Number Policy Number Jimmie cy Group Number Start Date Medicare RHC Medicare RHC [id number] N/ A Medicare Part A Medicare - Lab/Xray [id number] N/A BCBS [employer] [place] void N/A BC[employer] [place] void N/A BC[employer] [place] [id number] Fr combs, March 03, 2015 History of Encounters Visit Date Visit Type Provider 04/30/2019 Office visit Sharon COLE RN 03/31/2019 [...] Laboratory Candace REYNOLDS 01/02/2017 Office visit Candace Farias GROUND WORKER 12/27/2016 Laboratory Candace Farias GROUND WORKER 09/30/2016 Laboratory Candace Farias GROUND WORKER 06/26/2016 Office visit Candace Farias GROUND WORKER 06/18/2016 Laboratory LIZETTE HOFFMAN JET INSPECTOR 06/11/2016 Laboratory Candace Farias GROUND WORKER 06/04/2016 Office visit Candace Farias GROUND WORKER 03/04/2016 Office visit Candace Farias GROUND WORKER 02/10/2016 Office visit Alexandra Gil JET INSPECTOR 04/27/2015 Office visit LIZETTE HOFFMAN JET INSPECTOR 11/10/2014 Office visit De Kevin MD
--- OUTSIDE RECORDS SUMMARY | 2020-06-05 08:43 | XMS REPORT ---
Author Author Ava Farias Organization [facility] Address [address] [place], [place] [address] Care Team Providers Care Rattling Machine Tender Name Role Phone Candace Farias PCP Lizette Hoffman PreferredProvider Unavailable Allergies and Adverse Reactions Name Reaction Notes Augmentin Nausea and Vomiting prednisone Plan of Treatment Planned Activity Comments Planned Date Planned Time Plan/Goal URINALYSIS W/MICRO W/C&S 01/20/2019 12:00 AM Medications Active Name Start Date Estimated Completion Date SIG Co mments coenzyme Q10 100 mg oral capsule losartan-hydrochlorothiazide 100-25 mg oral tablet take 1 tablet by oral route once daily amlodipine 5 mg oral tablet take 1 [...] (10 mg) by oral route once daily Name Start Date Expiration Date SIG Comments [...] 06/05/2016 Tribenzor oral 06/05/2016 medication ch cipriano One-A-Day Womens Formula oral 01/02/2017 diclofenac sodium [...] HC BMI BSA BMI Percentile O2 Sat(%) 01/14/2019 8:55:00 AM 126 mmHg 82 mmHg [...] rpm 97.9 F 161.5 lbs 65.5 in 26.466 kg/m 1.84 m2 97 % 05/04/2018 10:45:00 AM 122 mmHg 78 mmHg 77 bpm 18 rpm 98.1 F 160.25 lbs 66 in 25.86 kg/m2 1.8398 m 97 % 04/03/2018 8:58:00 AM 128 mmHg 72 mmHg 76 bpm 17 rpm 96.9 F 162.25 lbs 66 i n 26.1876 kg/m 1.85 m2 98 % 12/23/2017 9:26:00 AM 138 mmHg 68 mmHg 111 bpm 16 rpm 99.1 F 161 lbs 66 in 25.99 kg/m2 1.8441 m 96 % 08/21/2017 2:49:00 PM 128 mmHg 72 mmHg 80 bpm 16 rpm 97 F 156 lbs 66 in 25.1788 kg/m 1.82 m2 98 % 03/25/2017 10:56:00 AM 132 mmHg 86 mmHg 72 bpm 16 rpm 97.7 F 162 lbs 66 in 26.15 kg/m2 1.8498 m 97 % 01/02/2017 10:46:00 AM 128 mmHg 78 mmHg 76 bpm 12 rpm 96.9 F 157.5 lbs 66 in 25.4209 kg/m 1.82 m2 99 % 06/26/2016 9:37:00 AM 140 mmHg 80 mmHg 76 bpm 14 rpm 96.6 F 151.5 lbs 66 in 24.45 kg/m2 1.7889 m 99 % 06/04/2016 8:31:00 AM 110 mmHg 62 mmHg 75 bpm 20 rpm 96.8 F 154 lbs 66 in 24.856 kg/m 1.80 m2 98 % 03/04/2016 2:44:00 PM 91 bpm 20 rpm 97.6 F 153 lbs 66 in 24.69 kg/m2 1.7977 m 97 % 02/10/2016 12:44:00 PM [...] 02/10/2016 12:00 AM Decadron, Per 1 Mg [facility]# [id number] Re viewed 02/10/2016 12:00 AM Depo-Medrol 40mg Reviewed 06/11/2016 12:00 AM ROUTINE VENIPUNCTURE Reviewed 06/11/2016 12:00 AM GENERAL HEALTH PANEL Reviewed 06/11/2016 12:00 AM LIPID PANEL Reviewed 06/11/2016 12:00 AM ALBUMIN URINE MICROALBUMIN QUANTIATIVE R eviewed 06/18/2016 12:00 AM ROUTINE VENIPUNCTURE Reviewed 06/18/2016 12:00 AM ASSAY THYROID STIM HORMONE Returned 06/18/2016 12:00 AM ASSAY OF FREE THYROXINE Returned 11/20/2016 12:00 AM COLLECTION VENOUS BLOOD VENIPUNCTURE [...] PROTEIN Reviewed 01/14/2019 12:00 AM ANTINUCLEAR ANTIBODIES Returned 01/14/2019 12:00 AM ASSAY OF BLOOD/URIC ACID Reviewed 01/14/2019 12:00 AM CCP ANTIBODY Reviewed 01/14/2019 12:00 AM RHEUMATOID FACTOR QUANT Reviewed 01/15/2019 12:00 AM ASSAY THYROID STIM HORMONE Reviewed Results Summary Date and Description Results [...] 5.5 LDL (CALC) 164.0 mg/dLTSH 5.980 uIU/mL 03/24/2017 3:52 PM FREE T4 0.77 TSH [...] YES TSH 6.66 CCP Antibodies IgG/IgA 5 History Of Immunizations Not available. History of [...] 2019 12:56PM Hematuria Jan 20 2019 11:47AM Payers Insurance Name Company Name Plan Name Plan Number Policy Number Jimmie cy Group Number Start Date [employer] [place] [id number] lauryn, 2015 [employer] [place] void N/A [employer] [place] void N/A History of Encounters Visit Date Visit Type Provider 01/20/2019 Laboratory Candace MEADOWSP 01/14/2019 Office visit Candace REYNOLDS 01/05/2019 Office visit Candace MEADOWSP 07/01/2018 Office visit Candace MEADOWSP 06/08/2018 Office visit Candace MEADOWSP 05/04/2018 Office visit Candace MEADOWSP 04/03/2018 Office visit Candace MEADOWSP 12/23/2017 Office visit LIZETTE HOFFMAN RAILWAYS ASSISTANT 08/21/2017 Office visit Candace REYNOLDS 03/25/2017 Office visit Candace MEADOWSP 03/24/2017 Laboratory Candace MEADOWSP 01/02/2017 Office visit Candace MEADOWSP 12/27/2016 Laboratory Candace MEADOWSP 09/30/2016 Laboratory Candace MEADOWSP 06/26/2016 Office visit Candace MEADOWSP 06/18/2016 Laboratory LIZETTE HOFFMAN RAILWAYS ASSISTANT 06/11/2016 Laboratory Candace MEADOWSP 06/04/2016 Office visit Candace MEADOWSP 03/04/2016 Office visit Candace MEADOWSP 02/10/2016 Office visit Alexandra Gil RAILWAYS ASSISTANT 04/27/2015 Office visit LIZETTE HOFFMAN RAILWAYS ASSISTANT 11/10/2014 Office visit De Kevin MD
--- OUTSIDE RECORDS SUMMARY | 2020-06-05 08:43 | XMS REPORT ---
Author Ava Taylor Organization [facility] Address [address] [place], [place] [address] Care Team Providers Care Research Biostatistician Name Role Phone Sharon Velasquez PCP Sharon Velasquez PreferredProvider Allergies and Adverse Reactions Name Reaction Notes Augmentin Nausea and Vomiting prednisone Plan of Treatment Planned Activity Comments Planned Date Planned Time Plan/Goal Thyroid function panel 03/31/2019 12:00 AM Thyroid function panel 03/31/2019 12:00 AM Medications Active Name Start Date [...] (10 mg) by oral route once daily Synthroid 25 mcg oral tablet 01/21/2019 alban e 1 tablet (25 mcg) by oral route every AM on an empty stomach lisinopril-hydrochlorothiazide 20-12.5 mg oral tablet 03/31/2019 06/29/2019 take 1 tablet by oral route once daily for 30 days Medrol (Aldair) 4 mg oral tablets,dose pack 03/31/2019 take as directed tizanidine 2 mg oral tablet 03/31/2019 take 1 tablet (2 mg) by oral route every 8 hours as needed Name Start Date Expiration Date SIG Comments [...] HC BMI BSA BMI Percentile O2 Sat(%) 03/31/2019 10:05:00 AM 122 mmHg 84 mmHg [...] in 25.86 kg/m2 1.8398 m 97 % Social History Name Description Comments Alcohol Current every day Tobacco Former smoker History of Procedures Date Ordered Description Order Status 02/10/2016 12:00 AM THER/PROPH/DIAG INJ SC/IM Reviewed 02/10/2016 12:00 AM Decadron, Per 1 Mg [facility]# [id number] Re viewed 02/10/2016 12:00 AM Depo-Medrol 40mg [...] DIP STICK/TABLET REAGENT AUTO MICR OSCOPY Reviewed Results Summary Date and Description Results [...] TRICHOMONAS NEGATIVE YEAST NEGATIVE CULT ORDERED YES History Of Immunizations Not available. History of [...] 2019 10:08AM Hypertension Mar 31 2019 10:08AM Payers Insurance Name Company Name Plan Name Plan Number Policy Number Jimmie cy Group Number Start Date Medicare RHC Medicare RHC [id number] N/ A [employer] [place] void N/A [employer] [place] void N/A [employer] [place] [id number] Fr combs, 2015 History of Encounters Visit Date Visit Type Provider 03/31/2019 Office visit Sharon COLE RN 01/20/2019 Laboratory Candace Farias WEB SOFTWARE ENGINEER 01/14/2019 Office visit Candace Farias WEB SOFTWARE ENGINEER 01/05/2019 Office visit Candace MEADOWSP 07/01/2018 Office visit Candace MEADOWSP 06/08/2018 Office visit Candace Farias WEB SOFTWARE ENGINEER 05/04/2018 Office visit Candace Farias WEB SOFTWARE ENGINEER 04/03/2018 Office visit Candace Farias WEB SOFTWARE ENGINEER 12/23/2017 Office visit LIZETTE HOFFMAN GLOBE MOUNTER 08/21/2017 Office visit Candace MEADOWSP 03/25/2017 Office visit Candace MEADOWSP 03/24/2017 Laboratory Candace MEADOWSP 01/02/2017 Office visit Candace Farias WEB SOFTWARE ENGINEER 12/27/2016 Laboratory Candace Farias WEB SOFTWARE ENGINEER 09/30/2016 Laboratory Candace MEADOWSP 06/26/2016 Office visit Candace MEADOWSP 06/18/2016 Laboratory LIZETTE HOFFMAN GLOBE MOUNTER 06/11/2016 Laboratory Candace MEADOWSP 06/04/2016 Office visit Candace MEADOWSP 03/04/2016 Office visit Candace MEADOWSP 02/10/2016 Office visit Alexandra Gil GLOBE MOUNTER 04/27/2015 Office visit LIZETTE HOFFMAN GLOBE MOUNTER 11/10/2014 Office visit De Kevin MD
--- OUTSIDE RECORDS SUMMARY | 2020-06-05 08:43 | XMS REPORT ---
Author Author Ava Farias Organization [facility] Address [address] [place], [place] [address] Care Team Providers Care Occupational Therapist Name Role Phone Candace Farias PCP Lizette [...] 02/10/2016 12:00 AM Decadron, Per 1 Mg [facility]# [id number] Re viewed 02/10/2016 12:00 AM Depo-Medrol 40mg [...] Group Number Start Date [employer] [place] [id number] lauryn, 2015 [employer] [place] void N/A [employer] [place] void N/A History of Encounters Visit Date Visit Type Provider 01/20/2019 Laboratory Candace MEADOWSP 01/14/2019 Office visit Candace REYNOLDS 01/05/2019 Office visit Candace MEADOWSP 07/01/2018 Office visit Candace MEADOWSP 06/08/2018 Office visit Candace MEADOWSP 05/04/2018 Office visit Candace MEADOWSP 04/03/2018 Office visit Candace MEADOWSP 12/23/2017 Office visit LIZETTE HOFFMAN BOTTLING SUPERVISOR 08/21/2017 Office visit Candace REYNOLDS 03/25/2017 Office visit Candace MEADOWSP 03/24/2017 Laboratory Candace MEADOWSP 01/02/2017 Office visit Candace MEADOWSP 12/27/2016 Laboratory Candace MEADOWSP 09/30/2016 Laboratory Candace MEADOWSP 06/26/2016 Office visit Candace MEADOWSP 06/18/2016 Laboratory LIZETTE HOFFMAN BOTTLING SUPERVISOR 06/11/2016 Laboratory Candace MEADOWSP 06/04/2016 Office visit Candace MEADOWSP 03/04/2016 Office visit Candace MEADOWSP 02/10/2016 Office visit Alexandra Gil BOTTLING SUPERVISOR 04/27/2015 Office visit LIZETTE HOFFMAN BOTTLING SUPERVISOR 11/10/2014 Office visit De Kevin MD
--- OUTSIDE RECORDS SUMMARY | 2020-06-05 08:44 | XMS REPORT ---
Author Author Ava Farias Organization [facility] o[facility] Address [address] [place], [place] [address] Care Team Providers Care Car Repairer Pullman Name Role Phone Candace Farias PCP Lizette Hoffman PreferredProvider Unavailable Allergies and Adverse Reactions Name Reaction Notes Augmentin Nausea and Vomiting prednisone Plan of Treatment Planned Activity Comments Planned Date Planned Time Plan/Goal URINALYSIS W/MICRO C&S IF IND 01/14/2019 12:00 AM CBC W/ AUTO DIFF (RFLX MAN DIFF IF IND). 01/14/2019 12:00 AM COMPREHENSIVE METABOLIC PANEL 01/14/2019 12:00 AM SED RATE 01/14/2019 12:00 AM CRP 01/14/2019 12:00 AM ANN-MARIE W/TITER 01/14/2019 12:00 AM URIC ACID. 01/14/2019 12:00 AM CCP 01/14/2019 12:00 AM Rheumatoid factor (RF) titer 01/14/2019 12:00 AM Medications Active Name Start Date [...] 02/10/2016 12:00 AM Decadron, Per 1 Mg [facility]# [address]-09 Re viewed 02/10/2016 12:00 AM Depo-Medrol 40mg [...] Reviewed 01/14/2019 12:00 AM ROUTINE VENIPUNCTURE Reviewed Results Summary Date and Description Results [...] IND FREE T4 0.78 TSH 4.90 uIU/mL History Of Immunizations Not available. History of [...] Medication monitoring encounter Jan 14 2019 10:11AM Payers Insurance Name Company Name Plan Name Plan Number Policy Number Jimmie cy Group Number Start Date [employer] [place] [id number] Fr combs, 2015 [employer] [place] [place] void N/A [employer] void N/A History of Encounters Visit Date Visit Type Provider 01/14/2019 Office visit Candace REYNOLDS 01/05/2019 Office visit Candace REYNOLDS 07/01/2018 Office visit Candace REYNOLDS 06/08/2018 Office visit Candace REYNOLDS 05/04/2018 Office visit Candace REYNOLDS 04/03/2018 Office visit Candace REYNOLDS 12/23/2017 Office visit LIZETTE HOFFMAN APRN 08/21/2017 Office visit Candace REYNOLDS 03/25/2017 Office visit Candace REYNOLDS 03/24/2017 Laboratory Candace REYNOLDS 01/02/2017 Office visit Candace REYNOLDS 12/27/2016 Laboratory Candace REYNOLDS 09/30/2016 Laboratory Candace Farias CASH REGISTER REPAIRER 06/26/2016 Office visit Candace Farias CASH REGISTER REPAIRER 06/18/2016 Laboratory LIZETTE HOFFMAN LABORATORY TECH 06/11/2016 Laboratory Candace Farias CASH REGISTER REPAIRER 06/04/2016 Office visit Candace Farias CASH REGISTER REPAIRER 03/04/2016 Office visit Candace Farias CASH REGISTER REPAIRER 02/10/2016 Office visit Alexandra Gil LABORATORY TECH 04/27/2015 Office visit LIZETTE HOFFMAN LABORATORY TECH 11/10/2014 Office visit De Kevin MD
--- OUTSIDE RECORDS SUMMARY | 2020-06-05 08:44 | XMS REPORT ---
Author Author Ava Farias Organization [facility] Address [address] [place], [place] [id number] Care Team Providers Care Director Dental Services Name Role Phone Candace Farias PCP Lizette [...] AM Decadron, Per 1 Mg [facility]# [address]-42 Re viewed 02/10/2016 12:00 AM Depo-Medrol 40mg [...] Group Number Start Date [employer] [place] [id number] Fr combs, 2015 [employer] [place] void N/A [employer] [place] void N/A History of Encounters Visit Date [...] Laboratory Candace REYNOLDS 09/30/2016 Laboratory Candace Farias PADDER CUSHION 06/26/2016 Office visit Candace Farias PADDER CUSHION 06/18/2016 Laboratory LIZETTE HOFFMAN PARTY PLAN SALES CONSULTANT 06/11/2016 Laboratory Candace Farias PADDER CUSHION 06/04/2016 Office visit Candace Farias PADDER CUSHION 03/04/2016 Office visit Candace Farias PADDER CUSHION 02/10/2016 Office visit Alexandra Gil PARTY PLAN SALES CONSULTANT 04/27/2015 Office visit LIZETTE HOFFMAN PARTY PLAN SALES CONSULTANT 11/10/2014 Office visit De Kevin MD
--- OUTSIDE RECORDS SUMMARY | 2020-06-05 08:44 | XMS REPORT ---
Author Author Ava Farias Organization [facility] Address [address] [place], [place] [id number] Care Team Providers Care Crusher Screen Repairer Name Role Phone Candace Farias PCP Lizette Hoffman PreferredProvider Unavailable Allergies and Adverse Reactions Name Reaction Notes Augmentin Nausea and Vomiting prednisone Plan of Treatment Planned Activity Comments Planned Date Planned Time Plan/Goal ANN-MARIE W/TITER 01/14/2019 12:00 AM CCP 01/14/2019 12:00 AM TSH 01/15/2019 12:00 AM Medications Active Name Start Date [...] 12:00 AM Decadron, Per 1 Mg [facility]# [id number] Re viewed 02/10/2016 12:00 AM Depo-Medrol 40mg [...] Reviewed 01/14/2019 12:00 AM URINALYSIS AUTO W/SCOPE Returned 01/14/2019 12:00 AM COMPLETE CBC W/AUTO DIFF WBC Returned 01/14/2019 12:00 AM COMPREHEN METABOLIC PANEL Returned 01/14/2019 12:00 AM RBC SED RATE AUTOMATED Returned 01/14/2019 12:00 AM C-REACTIVE PROTEIN Returned 01/14/2019 12:00 AM ASSAY OF BLOOD/URIC ACID Returned 01/14/2019 12:00 AM RHEUMATOID FACTOR QUANT Returned Results Summary Date and Description Results 06/11/2016 [...] 2019 10:11AM Polyarthralgia Jan 15 2019 12:56PM Payers Insurance Name Company Name Plan Name Plan Number Policy Number Jimmie Group Number Start Date [employer]BS [employer] [place] [id number] gallito, 2015 [employer] [place] void N/A [employer] [place] void N/A History of Encounters Visit Date [...] Candace REYNOLDS 01/02/2017 Office visit Candace Farias CNC PROGRAMMER 12/27/2016 Laboratory Candace Farias CNC PROGRAMMER 09/30/2016 Laboratory Candace Farias CNC PROGRAMMER 06/26/2016 Office visit Candace Farias CNC PROGRAMMER 06/18/2016 Laboratory LIZETTE HOFFMAN ASH WORKER 06/11/2016 Laboratory Candace Farias CNC PROGRAMMER 06/04/2016 Office visit Candace Farias CNC PROGRAMMER 03/04/2016 Office visit Candace Farias CNC PROGRAMMER 02/10/2016 Office visit Alexandra Gil ASH WORKER 04/27/2015 Office visit LIZETTE HOFFMAN ASH WORKER 11/10/2014 Office visit De Kevin MD
--- OUTSIDE RECORDS SUMMARY | 2020-06-05 08:44 | XMS REPORT ---
Author Author Ava Farias Organization [facility] Address [address] [place], [place] [id number] Care Team Providers Care Special Effects Makeup Artist Name Role Phone Candace Farias PCP Lizette Hoffman PreferredProvider Unavailable Allergies and Adverse Reactions Name Reaction Notes Augmentin Nausea and Vomiting prednisone Plan of Treatment Planned Activity Comments Planned Date Planned Time Plan/Goal ANN-MARIE W/TITER 01/14/2019 12:00 AM CCP 01/14/2019 12:00 AM Medications Active Name Start [...] 02/10/2016 12:00 AM Decadron, Per 1 Mg [facility]# [address]-82 Re viewed 02/10/2016 12:00 AM Depo-Medrol 40mg [...] 01/14/2019 12:00 AM RHEUMATOID FACTOR QUANT Returned 01/15/2019 12:00 AM ASSAY THYROID STIM HORMONE Returned Results Summary Date and Description Results [...] Group Number Start Date [employer] [place] [id number] [facility], 2015 [employer] [place] void N/A [employer] [place] void N/A History of Encounters Visit Date [...] Candace REYNOLDS 01/02/2017 Office visit Candace Farias MANUAL CONTROL AUGER PRESS OPERATOR 12/27/2016 Laboratory Candace Farias MANUAL CONTROL AUGER PRESS OPERATOR 09/30/2016 Laboratory Candace Farias MANUAL CONTROL AUGER PRESS OPERATOR 06/26/2016 Office visit Candace Farias MANUAL CONTROL AUGER PRESS OPERATOR 06/18/2016 Laboratory LIZETTE HOFFMAN CRUTCHING CONTRACTOR 06/11/2016 Laboratory Candace Farias MANUAL CONTROL AUGER PRESS OPERATOR 06/04/2016 Office visit Candace Farias MANUAL CONTROL AUGER PRESS OPERATOR 03/04/2016 Office visit Candace Farias MANUAL CONTROL AUGER PRESS OPERATOR 02/10/2016 Office visit Alexandra Gil CRUTCHING CONTRACTOR 04/27/2015 Office visit LIZETTE HOFFMAN CRUTCHING CONTRACTOR 11/10/2014 Office visit De Kevin MD
[2020-06-05] MEDS ORDERED: ceFAZolin INJECTION 1,000 MG in WATER (STERILE) FOR INJECTION 10 ML IV ONE (08:45)
--- OUTSIDE RECORDS SUMMARY | 2020-06-05 08:45 | XMS REPORT ---
Author Author Ava Farias Organization [facility] Address [address] [place], [place] [id number] Care Team Providers Care Rotary Dump Operator Name Role Phone Candace Farias PCP Lizette Hoffman PreferredProvider Unavailable Allergies and Adverse Reactions Name Reaction Notes Augmentin Nausea and Vomiting prednisone Plan of Treatment Planned Activity Comments Planned Date Planned Time Plan/Goal [facility] 01/05/2019 12:00 AM Medications Active Name Start Date [...] daily (May wear up to 12hours.) Vivlodex 5 mg oral capsule take 1 capsule (5 mg) by oral route once daily Name [...] 2 times a day for 7 days Discontinued Name Start Date [...] Active GERD (gastroesophageal reflux disease) Active Depressive Disorder Active Anxiety disorder Active Essential Hypertension Active Elevated TSH Active 06/26/2016 Subclinical hypothyroidism Active 03/17/2017 Osteoarthritis of right hand, unspecified osteoarthritis typ e Active 11/21/2017 Vital Signs Date Time BP-Sys(mm[Hg] BP-Nikki(mm[Hg]) HR(bpm) RR(rpm) Temp WT HT HC BMI BSA BMI Percentile O2 Sat(%) 01/05/2019 9:05:00 AM 122 mmHg 90 mmHg 78 bpm 20 rpm 97.7 F 165 lbs 97 % 07/01/2018 11:34:00 AM 144 mmHg 88 mmHg 76 bpm 18 rpm 98.4 F 159.5 lbs 65 in 26.54 kg/m2 1.8215 m 98 % 06/08/2018 4:00:00 PM [...] 162.25 lbs 66 i n 26.1876 kg/m 1.8512 m 98 % 12/23/2017 9:26:00 AM 138 mmHg 68 mmHg 111 bpm 16 rpm 99.1 F 161 lbs 66 in 25.99 kg/m2 1.84 m2 96 % 08/21/2017 2:49:00 PM 128 mmHg 72 mmHg 80 bpm 16 rpm 97 F 156 lbs 66 in 25.1788 kg/m 1.8152 m 98 % 03/25/2017 10:56:00 AM 132 mmHg 86 mmHg 72 bpm 16 rpm 97.7 F 162 lbs 66 in 26.15 kg/m2 1.85 m2 97 % 01/02/2017 10:46:00 AM 128 mmHg 78 mmHg 76 bpm 12 rpm 96.9 F 157.5 lbs 66 in 25.4209 kg/m 1.8239 m 99 % 06/26/2016 9:37:00 AM 140 mmHg 80 mmHg 76 bpm 14 rpm 96.6 F 151.5 lbs 66 in 24.45 kg/m2 1.79 m2 99 % 06/04/2016 8:31:00 AM 110 mmHg 62 mmHg 75 bpm 20 rpm 96.8 F 154 lbs 66 in 24.856 kg/m 1.8036 m 98 % 03/04/2016 2:44:00 PM 91 bpm 20 rpm 97.6 F 153 lbs 66 in 24.69 kg/m2 1.80 m2 97 % 02/10/2016 12:44:00 PM 66 bpm [...] 02/10/2016 12:00 AM Decadron, Per 1 Mg [facility]# [address]-39 Re viewed 02/10/2016 12:00 AM Depo-Medrol 40mg [...] 12:00 AM ASSAY OF FREE THYROXINE Reviewed Results Summary Date and Description Results [...] Date of Onset Comments Anxiety disorder Depressive Disorder Essential Hypertension GERD (gastroesophageal reflux disease) Hyperlipidemia Elevated TSH 06/26/2016 Subclinical hypothyroidism 03/17/2017 currently asy mptomaticrecommend repeating TSH and free T4 in six months Osteoarthritis of right hand, unspecified osteoarthritis typ e 11/21/2017 Last Mammogram 04/03/18 04/03/18--Negative Mastalgia 07/22/18 maryann jo ann luevano w / trial of lidoderm she will f/u in 3 mo. Hyperlipidemia Apr 27 2015 9:37AM GERD (gastroesophageal [...] left rotator cuff Jan 05 2019 9:08AM Payers Insurance Name Company Name Plan Name Plan Number Policy Number Jimmie cy Group Number Start Date BCBS [facility] [id number] Fr combsMarch 03, 2015 BCBS [employer] [place] void N/A BC[employer] [place] void N/A History of Encounters Visit Date Visit Type Provider 01/05/2019 Office visit Candace MEADOWSP 07/01/2018 Office visit Candace MEADOWSP 06/08/2018 Office visit Candace Farias REHAB NURSE 05/04/2018 Office visit Candace Farias REHAB NURSE 04/03/2018 Office visit Candace Farias REHAB NURSE 12/23/2017 Office visit LIZETTE HOFFMAN PROPERTY WORKER 08/21/2017 Office visit Candace MEADOWSP 03/25/2017 Office visit Candace Farias REHAB NURSE 03/24/2017 Laboratory Candace MEADOWSP 01/02/2017 Office visit Candace MEADOWSP 12/27/2016 Laboratory Candace MEADOWSP 09/30/2016 Laboratory Candace MEADOWSP 06/26/2016 Office visit Candace Farias REHAB NURSE 06/18/2016 Laboratory LIZETTE HOFFMAN PROPERTY WORKER 06/11/2016 Laboratory Candace MEADOWSP 06/04/2016 Office visit Candace MEADOWSP 03/04/2016 Office visit Candace MEADOWSP 02/10/2016 Office visit Alexandra Gil PROPERTY WORKER 04/27/2015 Office visit LIZETET HOFFMAN PROPERTY WORKER 11/10/2014 Office visit De Kevin MD
--- OUTSIDE RECORDS SUMMARY | 2020-06-05 08:45 | XMS REPORT ---
Author Author Ava Farias Organization [facility] Address [address] [place], [place] [address] Care Team Providers Care Trencher Driver Name Role Phone Candace Farias PCP Lizette [...] 02/10/2016 12:00 AM Decadron, Per 1 Mg [facility]# [id number] Re viewed 02/10/2016 12:00 AM Depo-Medrol 40mg [...] RADEX SHOULDER COMPLETE MINIMUM 2 VIEWS Reviewed Results Summary Date and Description Results [...] cy Group Number Start Date BCBS Bcbs [facility] [id number] Fr combs, 2015 [facility] void N/A [facility] History of Encounters Visit Date Visit Type Provider 01/05/2019 Office visit Candace MEADOWSP 07/01/2018 Office visit Candace MEADOWSP 06/08/2018 Office visit Candace MEADOWSP 05/04/2018 Office visit Candace Farias CENTER MANAGER 04/03/2018 Office visit Candace MEADOWSP 12/23/2017 Office visit LIZETTE HOFFMAN SAP PROJECT MANAGER 08/21/2017 Office visit Candace MEADOWSP 03/25/2017 Office visit Candace MEADOWSP 03/24/2017 Laboratory Candace MEADOWSP 01/02/2017 Office visit Candace MEADOWSP 12/27/2016 Laboratory Candace MEADOWSP 09/30/2016 Laboratory Candace MEADOWSP 06/26/2016 Office visit Candace Farias CENTER MANAGER 06/18/2016 Laboratory LIZETTE HOFFMAN SAP PROJECT MANAGER 06/11/2016 Laboratory Candace MEADOWSP 06/04/2016 Office visit Candace MEADOWSP 03/04/2016 Office visit Candace MEADOWSP 02/10/2016 Office visit Alexandra Gil SAP PROJECT MANAGER 04/27/2015 Office visit LIZETTE HOFFMAN SAP PROJECT MANAGER 11/10/2014 Office visit De Kevin MD
--- OUTSIDE RECORDS SUMMARY | 2020-06-05 08:45 | XMS REPORT ---
Author Author Ava Farias Organization [facility] Address [address] [place], [place] [address] Care Team Providers Care Director Chemistry Name Role Phone Candace Farias PCP Lizette [...] Decadron, Per 1 Mg [facility]# [id number] Re viewed 02/10/2016 12:00 AM Depo-Medrol 40mg [...] cy Group Number Start Date BCBS Bcbs [facility] [id number] Fr combs, 2015 [facility] void N/A [facility] N[facility]A History of Encounters Visit Date Visit Type Provider 01/05/2019 Office visit Candace MEADOWSP 07/01/2018 Office visit Candace MEADOWSP 06/08/2018 Office visit Candace MEADOWSP 05/04/2018 Office visit Candace Farias VARIETY PERFORMER 04/03/2018 Office visit Candace MEADOWSP 12/23/2017 Office visit LIZETTE HOFFMAN FACT CHECKER 08/21/2017 Office visit Candace MEADOWSP 03/25/2017 Office visit Candace MEADOWSP 03/24/2017 Laboratory Candace MEADOWSP 01/02/2017 Office visit Candace MEADOWSP 12/27/2016 Laboratory Candace MEADOWSP 09/30/2016 Laboratory Candace MEADOWSP 06/26/2016 Office visit Candace Farias VARIETY PERFORMER 06/18/2016 Laboratory LIZETTE HOFFMAN FACT CHECKER 06/11/2016 Laboratory Candace MEADOWSP 06/04/2016 Office visit Candace MEADOWSP 03/04/2016 Office visit Candace MEADOWSP 02/10/2016 Office visit Alexandra Gil FACT CHECKER 04/27/2015 Office visit LIZETTE HOFFMAN FACT CHECKER 11/10/2014 Office visit De Kevin MD
--- OUTSIDE RECORDS SUMMARY | 2020-06-05 08:45 | XMS REPORT ---
Author Author Ava Farias Organization Physicians oup Address [address] [place], [place] [address] Care Team Providers Care Middle [employer] Principal Name Role Phone Candace Farias PCP Lizette [...] 02/10/2016 12:00 AM Decadron, Per 1 Mg [facility]# [id number] Re viewed 02/10/2016 12:00 AM Depo-Medrol 40mg [...] of left shoulder Jan 14 2019 8:58AM Payers Insurance Name Company Name Plan Name Plan Number Policy Number Jimmie cy Group Number Start Date BCBS [employer] [place] [id number] Fr id[place], 2015 [employer] [place] void N/A [employer] [place] void N/A History of Encounters Visit Date Visit Type Provider 01/14/2019 Office visit Candace REYNOLDS 01/05/2019 Office visit Candace REYNOLDS 07/01/2018 Office visit Candace MEADOWSP 06/08/2018 Office visit Candace REYNOLDS 05/04/2018 Office visit Candace REYNOLDS 04/03/2018 Office visit Candace MEADOWSP 12/23/2017 Office visit LIZETTE HOFFMAN TON CYLINDER INSPECTOR 08/21/2017 Office visit Candace REYNOLDS 03/25/2017 Office visit Candace REYNOLDS 03/24/2017 Laboratory Candace MEADOWSP 01/02/2017 Office visit Candace REYNOLDS 12/27/2016 Laboratory Candace MEADOWSP 09/30/2016 Laboratory Candace REYNOLDS 06/26/2016 Office visit Candace REYNOLDS 06/18/2016 Laboratory LIZETTE HOFFMAN TON CYLINDER INSPECTOR 06/11/2016 Laboratory Candace REYNOLDS 06/04/2016 Office visit Candace MEADOWSP 03/04/2016 Office visit Candace REYNOLDS 02/10/2016 Office visit Alexandra Gil TON CYLINDER INSPECTOR 04/27/2015 Office visit LIZETTE HOFFMAN TON CYLINDER INSPECTOR 11/10/2014 Office visit De Kevin MD
--- OUTSIDE RECORDS SUMMARY | 2020-06-05 08:46 | XMS REPORT ---
Author Author Ava Farias Organization [facility] o[facility] Address [address] [place], [place] [address] Care Team Providers Care Protective Signal Operations Supervisor Name Role Phone Candace Farias PCP Lizette Hoffman PreferredProvider Unavailable Allergies and Adverse Reactions Name Reaction Notes Augmentin Nausea and Vomiting prednisone Plan of Treatment Planned Activity Comments Planned Date Planned Time Plan/Goal CBC With Auto Differential 03/24/2017 12:00 AM CMP (comprehensive metabolic panel) 03/24/2017 12:00 AM TSH 03/24/2017 12:00 AM Free T4 03/24/2017 12:00 AM CRP 03/24/2017 12:00 AM Sedimentation Rate 03/24/2017 12:00 AM Medications Active Name Start Date Estimated Completion Date SIG Co mments coenzyme Q10 100 mg oral capsule venlafaxine 75 mg oral capsule,extended release 24hr 06/04/2016 05/30/2017 take 1 capsule by oral route daily for 90 days losartan-hydrochlorothiazide 100-25 mg oral tablet take 1 tablet by oral route once daily amlodipine 5 mg oral tablet take 1 tablet (5 mg) by oral route once daily fish oil 1200 mg oral capsule once daily niacin oral vit b12 sublingal 1 dropper full under to ngue daily Name Start Date Expiration Date SIG [...] day for no longer than 14 days Discontinued Name Start Date Discontinued Date SIG Comments magnesium oral 06/05/2016 Tribenzor oral 06/05/2016 medication ch cipriano One-A-Day Womens Formula oral 01/02/2017 Problem List Description Status Onset Hyperlipidemia Active GERD (gastroesophageal reflux disease) Active Depressive Disorder Active Anxiety disorder Active Essential Hypertension Active Elevated TSH Active 06/26/2016 Subclinical hypothyroidism Active 03/17/2017 Vital Signs Date Time BP-Sys(mm[Hg] BP-Nikki(mm[Hg]) HR(bpm) RR(rpm) Temp WT HT HC BMI BSA BMI Percentile O2 Sat(%) 01/02/2017 10:46:00 AM 128 mmHg 78 mmHg [...] in 25.8648 kg/m 1.8398 m 97 % Social History Name Description Comments Alcohol Current every day Tobacco Former smoker History of Procedures Date Ordered Description Order Status 02/10/2016 12:00 AM THER/PROPH/DIAG INJ SC/IM Reviewed 02/10/2016 12:00 AM Decadron, Per 1 Mg [facility]# [address]-62 Re viewed 02/10/2016 12:00 AM Depo-Medrol 40mg Reviewed 06/11/2016 12:00 AM ROUTINE VENIPUNCTURE Reviewed 06/11/2016 12:00 AM GENERAL HEALTH PANEL Returned 06/11/2016 12:00 AM LIPID PANEL Returned 06/11/2016 12:00 AM ALBUMIN URINE MICROALBUMIN QUANTIATIVE R eturned 06/18/2016 12:00 AM ROUTINE VENIPUNCTURE Reviewed 06/18/2016 12:00 AM ASSAY THYROID STIM HORMONE Returned 06/18/2016 12:00 AM ASSAY OF FREE THYROXINE Returned 11/20/2016 12:00 AM COLLECTION VENOUS BLOOD VENIPUNCTURE Rev iewed Results Summary Data and Description Results 06/11/2016 3:07 PM WBC [...] FREE T4 0.75 TSH 4.610 uIU/m L 12/27/2016 3:46 PM TRIGLYCERIDES 130.0 mg/dLCHO LESTEROL 170.0 mg/dLHDL 43.0 mg/dLTOT CHOL/HDL 4.0 LDL (CALC) 101.0 mg/dLTSH 5.320 uIU/mLGLUCOSE 101.0 mg/dLSODIUM 140.0 mmol/LPOTASSIUM 4.40 mmol/LCHLORIDE 103.0 mmol/LCO2 29.0 mmol/LBUN 15.0 mg/dLCREATININE 0.90 mg/dLSGOT/AST 19.0 IU/LSGPT/ALT 19.0 IU/LALK PHOS 79.0 IU/LTOTAL PROTEIN 7.30 g/dLALBUMIN 4.40 g/dLTOTAL BILI 0.30 mg/dLCALCIUM 9.30 mg/dLAGE 61 GFR NonAA 63 GFR AA 76 eGFR >60 mL/min/1.73meGFR AA* >60 TSH 5.320 uIU/mLGLUCOSE 101.0 mg/dLSODIUM 140.0 mmol/LPOTASSIUM 4.40 mmol/LCHLORIDE 103.0 mmol/LCO2 29.0 mmol/LBUN 15.0 mg/dLCREATININE 0.90 mg/dLSGOT/AST 19.0 IU/LSGPT/ALT 19.0 IU/LALK PHOS 79.0 IU/LTOTAL PROTEIN 7.30 g/dLALBUMIN 4.40 g/dLTOTAL BILI 0.30 mg/dLCALCIUM 9.30 mg/dLAGE 61 GFR NonAA 63 GFR AA 76 eGFR >60 mL/min/1.73meGFR AA* >60 TRIGLYCERIDES 130.0 mg/dLCHOLESTEROL 170.0 mg/dLHDL 43.0 mg/dLTOT CHOL/HDL 4.0 LDL (CALC) 101.0 mg/dL History Of Immunizations Not available. History of Past Illness Name Date of Onset Comments Anxiety disorder Depressive Disorder Essential Hypertension GERD (gastroesophageal reflux disease) Hyperlipidemia Elevated TSH 06/26/2016 Subclinical hypothyroidism 03/17/2017 currently asy mptomaticrecommend repeating TSH and free T4 in six months Hyperlipidemia Apr 27 2015 9:37AM GERD (gastroesophageal [...] 2017 11:28AM Headache Mar 24 2017 11:28AM Payers Insurance Name Company Name Plan Name Plan Number Policy Number Jimmie cy Group Number Start Date BCBS Bcbs [facility] [id number] Fr lauryn, 2015 BCBS Bcbs [facility] void N/A BCBS Bcbs [facility] void N/A History of Encounters Visit Date Visit Type Provider 03/24/2017 Laboratory Candace REYNOLDS 01/02/2017 Office visit Candace MEADOWSP 12/27/2016 Laboratory Candace MEADOWSP 09/30/2016 Laboratory Candace MEADOWSP 06/26/2016 Office visit Candace MEADOWSP 06/18/2016 Laboratory LIZETTE HOFFMAN BULKING MACHINE OPERATOR 06/11/2016 Laboratory Candace MEADOWSP 06/04/2016 Office visit Candace MEADOWSP 03/04/2016 Office visit Candace MEADOWSP 02/10/2016 Office visit Alexandra Gil BULKING MACHINE OPERATOR 04/27/2015 Office visit LIZETTE HOFFMAN BULKING MACHINE OPERATOR 11/10/2014 Office visit De Kevin MD
--- OUTSIDE RECORDS SUMMARY | 2020-06-05 08:46 | XMS REPORT ---
Author Author Ava Farias Organization [facility] Address [address] [place], [place] [address] Care Team Providers Care Concrete Plant Laborer Name Role Phone Candace Farias PCP Lizette [...] venlafaxine 75 mg oral capsule,extended release 24hr 09/18/2017 TAKE ONE CAPSULE BY MOUTH ONCE DAILY pravastatin 40 mg oral tablet Medrol (Aldair) 4 mg oral tablets,dose pack 07/01/2018 take as directed doxycycline monohydrate 100 mg oral capsule 07/01/201807/08 take 1 capsule by oral route 2 times a day for 7 days Name Start Date Expiration [...] 2 times per day for 5 days Discontinued Name Start Date Discontinued Date [...] HC BMI BSA BMI Percentile O2 Sat(%) 07/01/2018 11:34:00 AM 144 mmHg 88 mmHg [...] 02/10/2016 12:00 AM Decadron, Per 1 Mg [facility]# [id number] Re viewed 02/10/2016 12:00 AM Depo-Medrol 40mg Reviewed 06/11/2016 12:00 AM ROUTINE VENIPUNCTURE Reviewed 06/11/2016 12:00 AM GENERAL HEALTH PANEL Reviewed 06/11/2016 12:00 AM LIPID PANEL Reviewed 06/11/2016 12:00 AM ALBUMIN URINE MICROALBUMIN QUANTIATIVE R stephaniewed 06/18/2016 12:00 AM ROUTINE VENIPUNCTURE Reviewed 06/18/2016 12:00 AM ASSAY THYROID STIM HORMONE Returned 06/18/2016 12:00 AM ASSAY OF FREE THYROXINE Returned 11/20/2016 12:00 AM COLLECTION VENOUS BLOOD VENIPUNCTURE Rev iewed 03/24/2017 12:00 AM COMPLETE CBC W/AUTO DIFF [...] typ e 11/21/2017 Last Mammogram 04/03/18 04/03/18--Negative Hyperlipidemia Apr 27 2015 9:37AM GERD (gastroesophageal [...] (unintentional), initial encounter Jul 01 2018 11:35AM Payers Insurance Name Company Name Plan Name Plan Number Policy Number Jimmie cy Group Number Start Date [employer] [place] [id number] [facility], 2015 [employer] [place] void N/A [employer] [employer] [place] void N/A History of Encounters Visit Date Visit Type Provider 07/01/2018 Office visit Candace REYNOLDS 06/08/2018 Office visit Candace REYNOLDS 05/04/2018 Office visit Candace REYNOLDS 04/03/2018 Office visit Candace REYNOLDS 12/23/2017 Office visit LIZETTE HOFFMAN APRN 08/21/2017 Office visit Candace REYNOLDS 03/25/2017 Office visit Candace REYNOLDS 03/24/2017 Laboratory Candace REYNOLDS 01/02/2017 Office visit Candace REYNOLDS 12/27/2016 Laboratory Candace REYNOLDS 09/30/2016 Laboratory Candace REYNOLDS 06/26/2016 Office visit Candace Farias RADIO REPAIRMAN 06/18/2016 Laboratory LIZETTE HOFFMAN RECREATIONAL RESORT MANAGER 06/11/2016 Laboratory Candace Farias RADIO REPAIRMAN 06/04/2016 Office visit Candace Farias RADIO REPAIRMAN 03/04/2016 Office visit Candace Farias RADIO REPAIRMAN 02/10/2016 Office visit Alexandra Gil RECREATIONAL RESORT MANAGER 04/27/2015 Office visit LIZETTE HOFFMAN RECREATIONAL RESORT MANAGER 11/10/2014 Office visit De Kevin MD
--- OUTSIDE RECORDS SUMMARY | 2020-06-05 08:46 | XMS REPORT ---
Author Author Ava Farias Organization [facility] Address [address] [place], [place] [address] Care Team Providers Care Furnace Process Supervisor Name Role Phone Candace Farias PCP [...] ngue daily pravastatin 40 mg oral tablet Lidoderm 5 % topical adhesive patch,medicated apply 1 patch by transdermal route once daily (May wear up to 12hours.) venlafaxine 75 mg oral capsule,extended release 24hr 10/09/2018 TAKE ONE CAPSULE BY MOUTH ONCE DAILY Name Start Date Expiration Date SIG Comments [...] magnesium oral 06/05/2016 Tribenzor oral 06/05/2016 medication julian cota One-A-Day Womens Formula oral 01/02/2017 diclofenac sodium [...] HC BMI BSA BMI Percentile O2 Sat(%) 08/06/2018 3:08:00 PM 138 mmHg 86 mmHg 91 bpm 181 rpm 98.1 F 233.25 lbs 65 in 38.8144 kg/m 2.2028 m 93 % 07/01/2018 11:34:00 AM 144 mmHg 88 mmHg 76 bpm 18 rpm 98.4 F 159.5 lbs 65 in 26.54 kg/m2 1.82 m2 98 % 06/08/2018 4:00:00 PM 136 mmHg 82 mmHg 83 bpm 18 rpm 97.9 F 161.5 lbs 65.5 in 26.466 kg/m 1.84 m 97 % 05/04/2018 10:45:00 AM 122 mmHg 78 mmHg 77 bpm 18 rpm 98.1 F 160.25 lbs 66 in 25.86 kg/m2 1.84 m2 97 % 04/03/2018 8:58:00 AM 128 mmHg [...] 02/10/2016 12:00 AM Decadron, Per 1 Mg [facility]# [address]-61 Re viewed 02/10/2016 12:00 AM Depo-Medrol 40mg Reviewed 06/11/2016 12:00 AM ROUTINE VENIPUNCTURE Reviewed 06/11/2016 12:00 AM GENERAL HEALTH PANEL Reviewed 06/11/2016 12:00 AM LIPID PANEL Reviewed 06/11/2016 12:00 AM ALBUMIN URINE MICROALBUMIN QUANTIATIVE R rikiewed 06/18/2016 12:00 AM ROUTINE VENIPUNCTURE Reviewed 06/18/2016 [...] Last Mammogram 04/03/18 04/03/18--Negative Mastalgia 07/22/18 maryann cherry eval w / trial of lidoderm she will [...] Group Number Start Date [employer]BS [employer] [place] [id number] [place] com[place], 2015 [employer] [place] void N/A [employer] [place] void N/A History of Encounters Visit Date Visit Type Provider 07/01/2018 Office visit Candace REYNOLDS 06/08/2018 Office visit Candace REYNOLDS 05/04/2018 Office visit Candace REYNOLDS 04/03/2018 Office visit Candace REYNOLDS 12/23/2017 Office visit LIZETTE HOFFMAN TAXIMETER REPAIRER 08/21/2017 Office visit Candace Farias SECRETARY SPECIALIST 03/25/2017 Office visit Candace Farias SECRETARY SPECIALIST 03/24/2017 Laboratory Candace Farias SECRETARY SPECIALIST 01/02/2017 Office visit Candace Farias SECRETARY SPECIALIST 12/27/2016 Laboratory Candace Farias SECRETARY SPECIALIST 09/30/2016 Laboratory Candace Farias SECRETARY SPECIALIST 06/26/2016 Office visit Candace Farias SECRETARY SPECIALIST 06/18/2016 Laboratory LIZETTE HOFFMAN TAXIMETER REPAIRER 06/11/2016 Laboratory Candace Farias SECRETARY SPECIALIST 06/04/2016 Office visit Candace Farias SECRETARY SPECIALIST 03/04/2016 Office visit Candace Farias SECRETARY SPECIALIST 02/10/2016 Office visit Alexandra Cherry TAXIMETER REPAIRER 04/27/2015 Office visit LIZETTE HOFFMAN TAXIMETER REPAIRER 11/10/2014 Office visit De Kevin MD
--- OUTSIDE RECORDS SUMMARY | 2020-06-05 08:46 | XMS REPORT ---
Author Author Ava Farias Organization [facility] o[facility] Address [address] [place], [place] [address] Care Team Providers Care Biomass Power Plant Superintendent Name Role Phone Candace Farias PCP Lizette [...] Decadron, Per 1 Mg [facility]# [address]-08 Re viewed 02/10/2016 12:00 AM Depo-Medrol 40mg [...] Group Number Start Date [employer] [place] [id number] Fr [place], 2015 [employer] [place] void N/A [employer] [place] void N/A History of Encounters Visit Date Visit Type Provider 07/01/2018 Office visit Candace REYNOLDS 06/08/2018 Office visit Candace REYNOLDS 05/04/2018 Office visit Candace REYNOLDS 04/03/2018 Office visit Candace REYNOLDS 12/23/2017 Office visit LIZETTE HOFFMAN DIGITAL FIELD SERVICE TECHNICIAN 08/21/2017 Office visit Candace Farias STORAGE FACILITY RENTAL CLERK 03/25/2017 Office visit Candace Farias STORAGE FACILITY RENTAL CLERK 03/24/2017 Laboratory Candace Farias STORAGE FACILITY RENTAL CLERK 01/02/2017 Office visit Candace Farias STORAGE FACILITY RENTAL CLERK 12/27/2016 Laboratory Candace Farias STORAGE FACILITY RENTAL CLERK 09/30/2016 Laboratory Candace Farias STORAGE FACILITY RENTAL CLERK 06/26/2016 Office visit Candace Farias STORAGE FACILITY RENTAL CLERK 06/18/2016 Laboratory LIZETTE HOFFMAN DIGITAL FIELD SERVICE TECHNICIAN 06/11/2016 Laboratory Candace Farias STORAGE FACILITY RENTAL CLERK 06/04/2016 Office visit Candace Farias STORAGE FACILITY RENTAL CLERK 03/04/2016 Office visit Candace Farias STORAGE FACILITY RENTAL CLERK 02/10/2016 Office visit Alexandra Cherry DIGITAL FIELD SERVICE TECHNICIAN 04/27/2015 Office visit LIZETTE HOFFMAN DIGITAL FIELD SERVICE TECHNICIAN 11/10/2014 Office visit De Kevin MD
--- OUTSIDE RECORDS SUMMARY | 2020-06-05 08:46 | XMS REPORT ---
Author Author Ava Farias Organization [facility] oup Address [address] [place], [place] [address] Care Team Providers Care Pharmaceutical Operator Name Role Phone Candace Farias PCP [...] ONCE DAILY pravastatin 40 mg oral tablet Name Start Date Expiration Date SIG Comments [...] HC BMI BSA BMI Percentile O2 Sat(%) 06/08/2018 4:00:00 PM 136 mmHg 82 mmHg [...] 02/10/2016 12:00 AM Decadron, Per 1 Mg [facility]# [id number] Re viewed 02/10/2016 12:00 AM Depo-Medrol 40mg [...] 11:40AM Right Mastodynia Jun 09 2018 3:07PM Payers Insurance Name Company Name Plan Name Plan Number Policy Number Jimmie cy Group Number Start Date [employer] [place] [id number] [place], 2015 [employer] [place] void N/A [employer] [employer] [place] void N/A History of Encounters Visit Date Visit Type Provider 06/08/2018 Office visit Candace REYNOLDS 05/04/2018 Office visit Candace REYNOLDS 04/03/2018 Office visit Candace MEADOWSP 12/23/2017 Office visit LIZETTE HOFFMAN CONSERVATION COORDINATOR 08/21/2017 Office visit Candace REYNOLDS 03/25/2017 Office visit Candace MEADOWSP 03/24/2017 Laboratory aCndace MEADOWSP 01/02/2017 Office visit Candace REYNOLDS 12/27/2016 Laboratory Candace MEADOWSP 09/30/2016 Laboratory Candace MEADOWSP 06/26/2016 Office visit Candace MEADOWSP 06/18/2016 Laboratory LIZETTE HOFFMAN CONSERVATION COORDINATOR 06/11/2016 Laboratory Candace MEADOWSP 06/04/2016 Office visit Candace MEADOWSP 03/04/2016 Office visit Candace REYNOLDS 02/10/2016 Office visit Alexandra Gil CONSERVATION COORDINATOR 04/27/2015 Office visit LIZETTE HOFFMAN CONSERVATION COORDINATOR 11/10/2014 Office visit De Kevin MD
--- OUTSIDE RECORDS SUMMARY | 2020-06-05 08:47 | XMS REPORT ---
Author Author Ava Farias Organization [facility] o[facility] Address [address] [place], [place] [address] Care Team Providers Care Brake Rider Name Role Phone Candace Farias PCP Allergies and Adverse Reactions Name Reaction Notes [...] mg oral capsule once daily niacin oral One-A-Day Womens Formula oral Name Start Date Expiration Date SIG Comments [...] 06/05/2016 Tribenzor oral 06/05/2016 medication ch cipriano Problem List Description Status Onset Hyperlipidemia Active GERD (gastroesophageal reflux disease) Active Depressive Disorder Active Anxiety disorder Active Essential Hypertension Active Vital Signs Date Time BP-Sys(mm[Hg] BP-Nikki(mm[Hg]) HR(bpm) RR(rpm) Temp WT HT HC BMI BSA BMI Percentile O2 Sat(%) 06/04/2016 8:31:00 AM 110 mmHg 62 mmHg [...] 02/10/2016 12:00 AM Decadron, Per [address] [facility]# [id number] Re viewed 02/10/2016 12:00 AM Depo-Medrol 40mg Reviewed 06/11/2016 12:00 AM ROUTINE VENIPUNCTURE Reviewed 06/11/2016 12:00 AM GENERAL HEALTH PANEL Returned 06/11/2016 12:00 AM LIPID PANEL Returned 06/11/2016 12:00 AM ALBUMIN URINE MICROALBUMIN QUANTIATIVE R eturned Results Summary Data and Description Results 06/11/2016 3:07 PM WBC 6.9 RBC 4.03 HGB 13.60 g /dLHCT 40.50 %MCV 101.0 fLMCH 33.70 pgMCHC 33.60 g/dLRDW CV 12.70 %MPV 10.0 fLPLT 338 %NEUT 46.90 %%LYMP 42.20 %%MONO 7.30 %%EOS 3.20 %%BASO 0.40 %#NEUT 3.23 #LYMP 2.90 #MONO 0.50 #EOS 0.22 #BASO 0.03 MICROALBUMIN UR 5.0 ug/mLGLUCOSE 95.0 mg/dLSODIUM 139.0 mmol/LPOTASSIUM 4.70 mmol/LCHLORIDE 101.0 mmol/LCO2 29.0 mmol/LBUN 13.0 mg/dLCREATININE 0.90 mg/dLSGOT/AST 17.0 IU/LSGPT/ALT 16.0 IU/LALK PHOS 82.0 IU/LTOTAL PROTEIN 6.90 g/dLALBUMIN 4.30 g/dLTOTAL BILI 0.40 mg/dLCALCIUM 9.60 mg/dLeGFR >60 mL/min/1.73mTRIGLYCERIDES 276.0 mg/dLCHOLESTEROL 268.0 mg/dLHDL 49.0 mg/dLLDL (CALC) 164.0 mg/dLTSH 5.980 uIU/mL History Of Immunizations Not available. History of Past Illness Name Date of Onset Comments Anxiety disorder Depressive Disorder Essential Hypertension GERD (gastroesophageal reflux disease) Hyperlipidemia Hyperlipidemia Apr 27 2015 9:37AM GERD (gastroesophageal [...] for lipid disorders Jun 11 2016 8:23AM Payers Insurance Name Company Name Plan Name Plan Number Policy Number Jimmie cy Group Number Start Date [employer] [place] [id number] [facility], 2015 [employer] [place] void N/A [employer] [place] void N/A History of Encounters Visit Date Visit Type Provider 06/11/2016 Laboratory Candace REYNOLDS 06/04/2016 Office visit Candace REYNOLDS 03/04/2016 Office visit Candace REYNOLDS 02/10/2016 Office visit Alexandra Gil PROFESSIONAL FIGHTER 04/27/2015 Office visit LIZETTE HOFFMAN PROFESSIONAL FIGHTER 11/10/2014 Office visit De Kevin MD
--- OUTSIDE RECORDS SUMMARY | 2020-06-05 08:47 | XMS REPORT ---
Author Author Ava Farias Organization [facility] oup Address [address] [place], [place] [address] Care Team Providers Care Woods Warden Name Role Phone Candace Farias PCP Lizette Hoffman PreferredProvider Unavailable Allergies and Adverse Reactions Name Reaction Notes Augmentin Nausea and Vomiting prednisone Plan of Treatment Planned Activity Comments Planned Date Planned Time Plan/Goal US BREAST LTD; RT 05/04/2018 12:00 AM CBC W/ AUTO DIFF (RFLX MAN DIFF IF IND). 05/04/2018 12:00 AM CMP 05/04/2018 12:00 AM TSH 05/04/2018 12:00 AM LIPID PANEL W/LDL 05/04/2018 12:00 AM LIPID PANEL W/LDL 05/04/2018 12:00 AM Free thyroxine (FT4) measurement 05/04/2018 12:00 AM Medications Active Name Start Date [...] HC BMI BSA BMI Percentile O2 Sat(%) 05/04/2018 10:45:00 AM 122 mmHg 78 mmHg [...] 12:00 AM Decadron, Per 1 Mg [facility]# [id number] Re viewed 02/10/2016 12:00 AM Depo-Medrol 40mg Reviewed 06/11/2016 12:00 AM ROUTINE VENIPUNCTURE Reviewed 06/11/2016 12:00 AM GENERAL HEALTH PANEL Reviewed 06/11/2016 12:00 AM LIPID PANEL Reviewed 06/11/2016 12:00 AM ALBUMIN URINE MICROALBUMIN QUANTIATIVE R марияd 06/18/2016 12:00 AM ROUTINE VENIPUNCTURE Reviewed 06/18/2016 [...] 12:00 AM MAMMOGRAPHY SCREENING, BILATERAL Reviewe d Results Summary Date and Description Results 06/11/2016 [...] Influenza A POSITIVE Influen za B NEGATIVE History Of Immunizations Not available. History of [...] Medication monitoring encounter May 04 2018 11:40AM Payers Insurance Name Company Name Plan Name Plan Number Policy Number Jimmie Group Number Start Date [employer] [place] [id number] [facility], 2015 [employer]BS [employer] [place] void N/A [employer] [place] void N/A History of Encounters Visit Date Visit Type Provider 05/04/2018 Office visit Candace REYNOLDS 04/03/2018 Office visit Candace REYNOLDS 12/23/2017 Office visit LIZETTE HOFFMAN CANCER PROGRAM COORDINATOR 08/21/2017 Office visit Candace REYNOLDS 03/25/2017 Office visit Candace REYNOLDS 03/24/2017 Laboratory Candace REYNOLDS 01/02/2017 Office visit Candace REYNOLDS 12/27/2016 Laboratory Candace REYNOLDS 09/30/2016 Laboratory Candace REYNOLDS 06/26/2016 Office visit Candace REYNOLDS 06/18/2016 Laboratory LIZETTE HOFFMAN CANCER PROGRAM COORDINATOR 06/11/2016 Laboratory Candace REYNOLDS 06/04/2016 Office visit Candace REYNOLDS 03/04/2016 Office visit Candace REYNOLDS 02/10/2016 Office visit Alexandra Gil CANCER PROGRAM COORDINATOR 04/27/2015 Office visit LIZETTE HOFFMAN APRN 11/10/2014 Office visit De Kevin MD
--- OUTSIDE RECORDS SUMMARY | 2020-06-05 08:47 | XMS REPORT ---
Author Author Ava Farias Organization [facility] Physicians oup Address [address] [place], [place] [address] Care Team Providers Care Machinist Supervisor Name Role Phone Candace Farias PCP [...] day for no longer than 14 days venlafaxine 75 mg oral capsule,extended release 24hr 06/04/2016 05/30/2017 take 1 capsule by oral route daily for 90 days cyclobenzaprine 10 mg oral tablet 03/25/2017 07/23/2017 take 1 tablet by oral route once a day (at bedtime) for 30 days muscle spasm Discontinued Name Start Date Discontinued Date SIG [...] HC BMI BSA BMI Percentile O2 Sat(%) 08/21/2017 2:49:00 PM 128 mmHg 72 mmHg [...] 12:00 AM Decadron, Per 1 Mg [facility]# [id number] Re viewed 02/10/2016 12:00 AM Depo-Medrol 40mg [...] 12:00 AM RBC SED RATE AUTOMATED Reviewed Results Summary Date and Description Results [...] >60 mL/min/1.73meGFR AA* >60 SEDRATE 14.0 mm/hr History Of Immunizations Not available. History of [...] unspecified headache type Mar 25 2017 10:58AM Payers Insurance Name Company Name Plan Name Plan Number Policy Number Jimmie cy Group Number Start Date [employer] [place] [id number] lauryn, 2015 [employer] [place] void N/A BC[employer] [place] void N/A History of Encounters Visit Date Visit Type Provider 08/21/2017 Office visit Candace REYNOLDS 03/25/2017 Office visit Candace MEADOWSP 03/24/2017 Laboratory Candace REYNOLDS 01/02/2017 Office visit Candace REYNOLDS 12/27/2016 Laboratory Candace REYNOLDS 09/30/2016 Laboratory Candace REYNOLDS 06/26/2016 Office visit Candcae REYNOLDS 06/18/2016 Laboratory LIZETTE HOFFMAN CUT OFF SAWYER 06/11/2016 Laboratory Candace MEADOWSP 06/04/2016 Office visit Candace REYNOLDS 03/04/2016 Office visit Candace REYNOLDS 02/10/2016 Office visit Alexandra Gil CUT OFF SAWYER 04/27/2015 Office visit LIZETTE HOFFMAN CUT OFF SAWYER 11/10/2014 Office visit De Kevin MD
--- OUTSIDE RECORDS SUMMARY | 2020-06-05 08:47 | XMS REPORT ---
Author Author Ava Farias Organization [facility] oup Address [address] [place], [place] [address] Care Team Providers Care Open Hearth Furnace Laborer Name Role Phone Candace Farias PCP Allergies [...] 02/10/2016 12:00 AM Decadron, Per 1 Mg [facility]# [id number] Re viewed 02/10/2016 12:00 AM Depo-Medrol 40mg [...] Group Number Start Date BCBS [employer] [place] [id number] [facility], 2015 BCBS [employer] [place] void N/A BC[employer] [place] void N/A History of Encounters Visit Date Visit Type Provider 06/11/2016 Laboratory Candace REYNOLDS 06/04/2016 Office visit Candace REYNOLDS 03/04/2016 Office visit Candace REYNOLDS 02/10/2016 Office visit Alexandra Gil PIANO PLAYER 04/27/2015 Office visit LIZETTE HOFFMAN PIANO PLAYER 11/10/2014 Office visit De Kevin MD
--- OUTSIDE RECORDS SUMMARY | 2020-06-05 08:47 | XMS REPORT ---
Author Author Ava Farias Organization [facility] oup Address [address] [place], [place] [address] Care Team Providers Care Shopper Marketing Manager Name Role Phone Candace Farias PCP Lizette [...] Essential Hypertension Active Elevated TSH Active 06/26/2016 Vital Signs Date Time BP-Sys(mm[Hg] BP-Nikki(mm[Hg]) HR(bpm) RR(rpm) Temp WT HT HC BMI BSA BMI Percentile O2 Sat(%) 06/26/2016 9:37:00 AM 140 mmHg 80 mmHg [...] 02/10/2016 12:00 AM Decadron, Per 1 Mg [facility]# [id number] Re viewed 02/10/2016 12:00 AM Depo-Medrol 40mg Reviewed 06/11/2016 12:00 AM ROUTINE VENIPUNCTURE Reviewed 06/11/2016 12:00 AM GENERAL HEALTH PANEL Returned 06/11/2016 12:00 AM LIPID PANEL Returned 06/11/2016 12:00 AM ALBUMIN URINE MICROALBUMIN QUANTIATIVE R eturned 06/18/2016 12:00 AM ROUTINE VENIPUNCTURE Reviewed 06/18/2016 12:00 AM ASSAY THYROID STIM HORMONE Returned 06/18/2016 12:00 AM ASSAY OF FREE THYROXINE Returned 09/30/2016 12:00 AM COLLECTION VENOUS BLOOD VENIPUNCTURE Rev [...] FREE T4 0.75 TSH 4.610 uIU/m L History Of Immunizations Not available. History of Past Illness Name Date of Onset Comments Anxiety disorder Depressive Disorder Essential Hypertension GERD (gastroesophageal reflux disease) Hyperlipidemia Elevated TSH 06/26/2016 Hyperlipidemia Apr 27 2015 9:37AM GERD (gastroesophageal [...] Elevated TSH Jun 26 2016 9:40AM Hypertension Sep 30 2016 8:33AM Payers Insurance Name Company Name Plan Name Plan Number Policy Number Jimmie cy Group Number Start Date BCBS [facility] [id number] [place], [facility] BCBS [employer] [place] void N/A History of Encounters Visit Date Visit Type Provider 09/30/2016 Laboratory Candace REYNOLDS 06/26/2016 Office visit Candace MEADOWSP 06/18/2016 Laboratory LIZETTE HOFFMAN FUND RAISER 06/11/2016 Laboratory Candace MEADOWSP 06/04/2016 Office visit Candace REYNOLDS 03/04/2016 Office visit Candace REYNOLDS 02/10/2016 Office visit Alexandra Gil FUND RAISER 04/27/2015 Office visit LIZETTE HOFFMAN FUND RAISER 11/10/2014 Office visit De Kevin MD
--- OUTSIDE RECORDS SUMMARY | 2020-06-05 08:47 | XMS REPORT ---
Author Author Ava Farias Organization [facility] Phys[facility] oup Address [address] [place], [place] [address] Care Team Providers Care Customer Relations Assistant Name Role Phone Candace Farias PCP Lizette [...] 02/10/2016 12:00 AM Decadron, Per 1 Mg [facility]# [id number] Re viewed 02/10/2016 12:00 AM Depo-Medrol 40mg [...] 8:15AM Hypothyroidism, Acquired Dec 27 2016 8:15AM Payers Insurance Name Company Name Plan Name Plan Number Policy Number Jimmie cy Group Number Start Date [employer] [place] [id number] [place], 2015 [employer] [place] void N/A [employer] [place] void N/A History of Encounters Visit Date Visit Type Provider 12/27/2016 Laboratory Candace MEADOWSP 09/30/2016 Laboratory Candace MEADOWSP 06/26/2016 Office visit Candace MEADOWSP 06/18/2016 Laboratory LIZETTE HOFFMAN ENDOCRINOLOGY TEACHER 06/11/2016 Laboratory Candace MEADOWSP 06/04/2016 Office visit Candace REYNOLDS 03/04/2016 Office visit Candace MEADOWSP 02/10/2016 Office visit Alexandra Gil ENDOCRINOLOGY TEACHER 04/27/2015 Office visit LIZETTE HOFFMAN ENDOCRINOLOGY TEACHER 11/10/2014 Office visit De Kevin MD
--- OUTSIDE RECORDS SUMMARY | 2020-06-05 08:47 | XMS REPORT ---
Author Author Ava Farias Organization [facility] Physicians oup Address [address] [place], [place] [address] Care Team Providers Care Starting Sheet Tank Operator Name Role Phone Candace Farias PCP Allergies [...] Decadron, Per 1 Mg [facility]# [address]-82 Re viewed 02/10/2016 12:00 AM Depo-Medrol 40mg [...] Group Number Start Date BCBS [employer] [place] [id number] [facility], 2015 [employer]BS [employer] [place] void N/A [employer] [place] void N/A History of Encounters Visit Date Visit Type Provider 06/11/2016 Laboratory Candace REYNOLDS 06/04/2016 Office visit Candace REYNOLDS 03/04/2016 Office visit Candace REYNOLDS 02/10/2016 Office visit Alexandra Gil CLASS B TRUCK DRIVER 04/27/2015 Office visit LIZETTE HOFFMAN CLASS B TRUCK DRIVER 11/10/2014 Office visit De Kevin MD
--- OUTSIDE RECORDS SUMMARY | 2020-06-05 08:48 | XMS REPORT ---
Author Author Ava HOFFMAN Organization [facility] oup Address [address] [place], [place] [address] Care Team Providers Care Live Ammunition Inspector Name Role Phone HAYDEN HOFFMAN PCP Hayden Hoffman PreferredProvider Unavailable Allergies and Adverse Reactions [...] TAKE ONE CAPSULE BY MOUTH ONCE DAILY Tamiflu 75 mg oral capsule 12/23/2017 12/28/2017 take 1 capsule (75 mg) by oral route 2 times per day for 5 days promethazine-codeine 6.25-10 mg/5 mL oral syrup 12/23/2017 take 5 milliliters by oral route every 6 hours as needed, not to exceed 30 mL in 24 hours fluticasone 50 mcg/actuation nasal spray,suspension 12/23/2017 spray 1 spray (50 mcg) in each nostril by intranasal route 2 times per day Name Start Date Expiration [...] (at bedtime) for 30 days muscle spasm cyclobenzaprine 10 mg oral tablet 03/25/2017 07/23/2017 take 1 tablet by oral route once a day (at bedtime) for 30 days muscle spasm Pt states she does not use it Discontinued Name Start Date Discontinued Date SIG Comments magnesium oral 06/05/2016 Tribenzor oral 06/05/2016 medication ch cipriano One-A-Day Womens Formula oral 01/02/2017 diclofenac sodium 75 mg oral tablet,delayed release (DR/EC) 09/18/2017 12/23/2017 take 1 tablet (75 mg) by oral route 2 times per day as needed diclofenac sodium 75 mg oral tablet,delayed release (DR/EC) 09/18/2017 12/23/2017 take 1 tablet (75 mg) by oral route 2 times per day as needed pt states she does not use it Problem List Description Status Onset Hyperlipidemia Active GERD (gastroesophageal reflux disease) Active Depressive Disorder Active Anxiety disorder Active Essential Hypertension Active Elevated TSH Active 06/26/2016 Subclinical hypothyroidism Active 03/17/2017 Osteoarthritis of right hand, unspecified osteoarthritis typ e Active 11/21/2017 Vital Signs Date Time BP-Sys(mm[Hg] BP-Nikki(mm[Hg]) HR(bpm) RR(rpm) Temp WT HT HC BMI BSA BMI Percentile O2 Sat(%) 12/23/2017 9:26:00 AM 138 mmHg 68 mmHg [...] 02/10/2016 12:00 AM Decadron, Per 1 Mg [facility]# [address]-48 Re viewed 02/10/2016 12:00 AM Depo-Medrol 40mg [...] 10:03 AM INFLUENZA A/B AG EIA Reviewed Results Summary Date and Description Results [...] right hand, unspecified osteoarthritis typ e 11/21/2017 Hyperlipidemia Apr 27 2015 9:37AM GERD (gastroesophageal [...] 2:52PM Influenza A Dec 23 2017 9:30AM Payers Insurance Name Company Name Plan Name Plan Number Policy Number Jimmie cy Group Number Start Date [employer] [place] [id number] Fr combs, 2015 [employer] [place] void N/A BC[employer] [place] void N/A History of Encounters Visit Date Visit Type Provider 12/23/2017 Office visit HAYDEN HOFFMAN MANAGING ATTORNEY 08/21/2017 Office visit Candace REYNOLDS 03/25/2017 Office visit Candace MEADOWSP 03/24/2017 Laboratory Candace MEADOWSP 01/02/2017 Office visit Candace MEADOWSP 12/27/2016 Laboratory Candace MEADOWSP 09/30/2016 Laboratory Candace MEADOWSP 06/26/2016 Office visit Candace MEADOWSP 06/18/2016 Laboratory HAYDEN HOFFMAN MANAGING ATTORNEY 06/11/2016 Laboratory Candace MEADOWSP 06/04/2016 Office visit Candace REYNOLDS 03/04/2016 Office visit Candace REYNOLDS 02/10/2016 Office visit Alexandra Gil MANAGING ATTORNEY 04/27/2015 Office visit HAYDEN HOFFMAN MANAGING ATTORNEY 11/10/2014 Office visit De Kevin MD
--- OUTSIDE RECORDS SUMMARY | 2020-06-05 08:48 | XMS REPORT ---
Author Author Ava Farias Organization [facility] oup Address [address] [place], [place] [address] Care Team Providers Care Semiconductor Manufacturing Technician Name Role Phone Candace Farias PCP Lizette [...] TAKE ONE CAPSULE BY MOUTH ONCE DAILY diclofenac sodium 75 mg oral tablet,delayed release (DR/EC) 08/25 take 1 tablet (75 mg) by oral route 2 times per day as needed Name Start Date Expiration Date [...] day for no longer than 14 days cyclobenzaprine 10 mg oral tablet 03/25/2017 [...] Mg [facility]# [address]-25 Re viewed 02/10/2016 12:00 AM Depo-Medrol 40mg [...] osteoarthrit is type Aug 21 2017 2:52PM Payers Insurance Name Company Name Plan Name Plan Number Policy Number Jimmie cy Group Number Start Date [employer] [place] [id number] [facility], 2015 BCBS [employer] [place] void N/A [employer] [place] void N/A History of Encounters Visit Date Visit Type Provider 08/21/2017 Office visit Candace REYNOLDS 03/25/2017 Office visit Candace REYNOLDS 03/24/2017 Laboratory Candace REYNOLDS 01/02/2017 Office visit Candace REYNOLDS 12/27/2016 Laboratory Candace REYNOLDS 09/30/2016 Laboratory Candace REYNOLDS 06/26/2016 Office visit Candace REYNOLDS 06/18/2016 Laboratory LIZETTE HOFFMAN PATIENT CARE TECHNICIAN 06/11/2016 Laboratory Candace MEADOWSP 06/04/2016 Office visit Candace REYNOLDS 03/04/2016 Office visit Candace REYNOLDS 02/10/2016 Office visit Alexandra Gil PATIENT CARE TECHNICIAN 04/27/2015 Office visit LIZETTE HOFFMAN PATIENT CARE TECHNICIAN 11/10/2014 Office visit De Kevin MD
--- OUTSIDE RECORDS SUMMARY | 2020-06-05 08:48 | XMS REPORT ---
Author Author Ava Farias Organization [facility] Physicians oup Address [address] [facility] [address] [place], [place] [address] Care Team Providers Care Patient Care Name Role Phone Candace Farias PCP Lizette Hoffman PreferredProvider Unavailable Allergies and Adverse Reactions Name Reaction Notes Augmentin Nausea and Vomiting prednisone Plan of Treatment Planned Activity Comments Planned Date Planned Time Plan/Goal MAMMOGRAPHY SCREENING, BILATERAL 04/03/2018 12:00 AM Medications Active Name Start Date [...] HC BMI BSA BMI Percentile O2 Sat(%) 04/03/2018 8:58:00 AM 128 mmHg 72 mmHg [...] 02/10/2016 12:00 AM Decadron, Per 1 Mg [facility]# [id number] Re viewed 02/10/2016 12:00 AM Depo-Medrol 40mg [...] 12:00 AM CHEST X-RAY 2VW FRONTAL&LATL Reviewed Results Summary Date and Description Results [...] 9:01AM Right Mastodynia Apr 03 2018 9:01AM Payers Insurance Name Company Name Plan Name Plan Number Policy Number Jimmie cy Group Number Start Date [employer] [place] [id number] [place], 2015 [employer] [place] void N/A [employer] [place] void N/A History of Encounters Visit Date Visit Type Provider 04/03/2018 Office visit Candace REYNOLDS 12/23/2017 Office visit LIZETTE HOFFMAN MILIEU THERAPIST 08/21/2017 Office visit Candace REYNOLDS 03/25/2017 Office visit Candace MEADOWSP 03/24/2017 Laboratory Candace MEADOWSP 01/02/2017 Office visit Candace MEADOWSP 12/27/2016 Laboratory Candace MEADOWSP 09/30/2016 Laboratory Candace MEADOWSP 06/26/2016 Office visit Candace MEADOWSP 06/18/2016 Laboratory LIZETTE HOFFMAN MILIEU THERAPIST 06/11/2016 Laboratory Candace MEADOWSP 06/04/2016 Office visit Candace MEADOWSP 03/04/2016 Office visit Candace MEADOWSP 02/10/2016 Office visit Alexandra Gil MILIEU THERAPIST 04/27/2015 Office visit LIZETTE HOFFMAN MILIEU THERAPIST 11/10/2014 Office visit De Kevin MD
--- OUTSIDE RECORDS SUMMARY | 2020-06-05 08:48 | XMS REPORT ---
Author Author Ava Farias Organization Physicians oup Address [address] [facility] [address] [place], [place] [address] Care Team Providers Care Ticket Speculator Name Role Phone Candace Farias PCP Lizette [...] [facility]# [address]-95 Re viewed 02/10/2016 12:00 AM Depo-Medrol 40mg [...] cy Group Number Start Date BCBS Bcbs [facility] [id number] Fr lauryn, 2015 BCBS Bcbs [facility] void N/A BCBS Bcbs [facility] void N/A History of Encounters Visit Date Visit Type Provider 03/24/2017 Laboratory Candace REYNOLDS 01/02/2017 Office visit Candace MEADOWSP 12/27/2016 Laboratory Candace MEADOWSP 09/30/2016 Laboratory Candace MEADOWSP 06/26/2016 Office visit Candace MEADOWSP 06/18/2016 Laboratory LIZETTE HOFFMAN REMOTE SENSING RESEARCH SCIENTIST 06/11/2016 Laboratory Candace MEADOWSP 06/04/2016 Office visit Candace MEADOWSP 03/04/2016 Office visit Candace MEADOWSP 02/10/2016 Office visit Alexandra Gil REMOTE SENSING RESEARCH SCIENTIST 04/27/2015 Office visit LIZETTE HOFFMAN REMOTE SENSING RESEARCH SCIENTIST 11/10/2014 Office visit De Kevin MD
--- OUTSIDE RECORDS SUMMARY | 2020-06-05 08:48 | XMS REPORT ---
Author Author Ava Farias Organization [facility] Phys[facility] oup Address [address] [place], [place] [address] Care Team Providers Care Tax Assessor Name Role Phone Candace Farias PCP Lizette [...] 12:00 AM Decadron, Per [address] [facility]# [id number] Re viewed 02/10/2016 12:00 AM Depo-Medrol 40mg [...] 2016 2:02PM Hyperlipemia Nov 20 2016 2:02PM Payers Insurance Name Company Name Plan Name Plan Number Policy Number Jimmie cy Group Number Start Date BCBS Bcbs [facility] [id number] Fr combs, 2015 BCBS [employer] [place] void N/A [employer] [place] void N/A History of Encounters Visit Date Visit Type Provider 09/30/2016 Laboratory Candace REYNOLDS 06/26/2016 Office visit Candace MEADOWSP 06/18/2016 Laboratory LIZETTE HOFFMAN CREW TRUCK DRIVER 06/11/2016 Laboratory Candace REYNOLDS 06/04/2016 Office visit Candace REYNOLDS 03/04/2016 Office visit Candace REYNOLDS 02/10/2016 Office visit Alexandra Gil CREW TRUCK DRIVER 04/27/2015 Office visit LIZETTE HOFFMAN CREW TRUCK DRIVER 11/10/2014 Office visit De Kevin MD
--- OUTSIDE RECORDS SUMMARY | 2020-06-05 08:48 | XMS REPORT ---
Author Author Ava Farias Organization [facility] Physicians oup Address [address] [facility] [address] [place], [place] [address] Care Team Providers Care Field Staff Manager Name Role Phone Candace Farias PCP [...] 12:00 AM Decadron, Per 1 Mg [facility]# [address]-26 Re viewed 02/10/2016 12:00 AM Depo-Medrol 40mg [...] Group Number Start Date BCBS Bcbs [facility] [id number] Fr lauryn, 2015 BCBS Bcbs [facility] void N/A BCBS Bcbs [facility] void N/A History of Encounters Visit Date Visit Type Provider 03/24/2017 Laboratory Candace REYNOLDS 01/02/2017 Office visit Candace MEADOWSP 12/27/2016 Laboratory Candace MEADOWSP 09/30/2016 Laboratory Candace MEADOWSP 06/26/2016 Office visit Candace MEADOWSP 06/18/2016 Laboratory LIZETTE HOFFMAN SHELL WORKER 06/11/2016 Laboratory Candace MEADOWSP 06/04/2016 Office visit Candace MEADOWSP 03/04/2016 Office visit Candace MEADOWSP 02/10/2016 Office visit Alexandra Gil SHELL WORKER 04/27/2015 Office visit LIZETTE HOFFMAN SHELL WORKER 11/10/2014 Office visit De Kevin MD
--- OUTSIDE RECORDS SUMMARY | 2020-06-05 08:49 | XMS REPORT ---
Author Author Ava Farias Organization [facility] Phys[facility] ou Address [address] [facility] [address] [place], [place] [address] Care Team Providers Care Web Programmer Name Role Phone Candace Farias PCP Allergies and Adverse Reactions Name Reaction Notes Augmentin Nausea and Vomiting prednisone Plan of Treatment Planned Activity Comments Planned Date Planned Time Plan/Goal GENERAL HEALTH PANEL 06/11/2016 12:00 AM LIPID PANEL 06/11/2016 12:00 AM MICROALBUMIN QUANTITATIVE 06/11/2016 12:00 AM Medications Active Name Start Date [...] 02/10/2016 12:00 AM Decadron, Per 1 Mg [facility]# [address]-00 Re viewed 02/10/2016 12:00 AM Depo-Medrol 40mg Reviewed 06/11/2016 12:00 AM ROUTINE VENIPUNCTURE Reviewed Results Summary Not available. History Of Immunizations Not available. History of [...] Start Date BC[employer] [place] [id number] Fr contiroger, 2015 BCBS [employer] [place] void N/A BCBS Bcbs [facility] void N/A History of Encounters Visit Date Visit Type Provider 06/11/2016 Laboratory Candace MEADOWSP 06/04/2016 Office visit Candace REYNOLDS 03/04/2016 Office visit Candace REYNOLDS 02/10/2016 Office visit Alexandra Gil WEEKDAY BABYSITTER 04/27/2015 Office visit LIZETTE HOFFMAN WEEKDAY BABYSITTER 11/10/2014 Office visit De Kevin MD
--- OUTSIDE RECORDS SUMMARY | 2020-06-05 08:49 | XMS REPORT ---
Author Author Ava Farias Organization [facility] Physicians oup Address [address] [place], [place] [address] Care Team Providers Care Manager Aerospace Name Role Phone Candace Farias PCP Lizette Hoffman PreferredProvider Unavailable Allergies and Adverse Reactions Name Reaction Notes Augmentin Nausea and Vomiting prednisone Plan of Treatment Planned Activity Comments Planned Date Planned Time Plan/Goal Chest PA and Lateral - Main 04/03/2018 12:00 AM MAMMOGRAPHY SCREENING, BILATERAL 04/03/2018 12:00 AM Medications [...] 02/10/2016 12:00 AM Decadron, Per 1 Mg [facility]# [address]-90 Re viewed 02/10/2016 12:00 AM Depo-Medrol 40mg [...] Number Start Date BCBS [employer] [place] [id number] Fr combs, 2015 [employer] [place] void N/A [employer] [place] void N/A History of Encounters Visit Date Visit Type Provider 04/03/2018 Office visit Candace REYNOLDS 12/23/2017 Office visit LIZETTE HOFFMAN MORTISING MACHINE OPERATOR 08/21/2017 Office visit Candace REYNOLDS 03/25/2017 Office visit Candace REYNOLDS 03/24/2017 Laboratory Candace MEADOWSP 01/02/2017 Office visit Candace MEADOWSP 12/27/2016 Laboratory Candace MEADOWSP 09/30/2016 Laboratory Candace MEADOWSP 06/26/2016 Office visit Candace MEADOWSP 06/18/2016 Laboratory LIZETTE HOFFMAN MORTISING MACHINE OPERATOR 06/11/2016 Laboratory Candace MEADOWSP 06/04/2016 Office visit Candace MEADOWSP 03/04/2016 Office visit Candace REYNOLDS 02/10/2016 Office visit Alexandra Gil MORTISING MACHINE OPERATOR 04/27/2015 Office visit LIZETTE HOFFMAN MORTISING MACHINE OPERATOR 11/10/2014 Office visit De Kevin MD
--- OUTSIDE RECORDS SUMMARY | 2020-06-05 08:49 | XMS REPORT ---
Author Author Ava Farias Organization [facility] Physicians oup Address [address] [place], [place] [address] Care Team Providers Care Gutter Mouth Cutter Name Role Phone Candace Farias PCP Allergies [...] 02/10/2016 12:00 AM Decadron, Per 1 Mg [facility]# [address]-49 Re viewed 02/10/2016 12:00 AM Depo-Medrol 40mg [...] Number Start Date BCBS [employer] [place] [id number] [facility], 2015 BCBS [employer] [place] void N/A [employer] [place] void N/A History of Encounters Visit Date Visit Type Provider 06/11/2016 Laboratory Candace REYNOLDS 06/04/2016 Office visit Candace REYNOLDS 03/04/2016 Office visit Candace REYNOLDS 02/10/2016 Office visit Alexandra Gil FRAME FIXER 04/27/2015 Office visit LIZETTE HOFFMAN FRAME FIXER 11/10/2014 Office visit De Kevin MD
--- OUTSIDE RECORDS SUMMARY | 2020-06-05 08:49 | XMS REPORT ---
Author Author Ava Farias Organization [facility] Physicians oup Address [address] [place], [place] [address] Care Team Providers Care Blender/Braze Applicator Name Role Phone Candace Farias PCP Allergies [...] 02/10/2016 12:00 AM Decadron, Per 1 Mg [facility]# [address]-22 Re viewed 02/10/2016 12:00 AM Depo-Medrol 40mg [...] Group Number Start Date BCBS [employer] [place] [id number] [facility], 2015 BCBS [employer] [place] void N/A BC[employer] [place] void N/A History of Encounters Visit Date Visit Type Provider 06/11/2016 Laboratory Candace REYNOLDS 06/04/2016 Office visit Candace REYNOLDS 03/04/2016 Office visit Candace REYNOLDS 02/10/2016 Office visit Alexandra Gil DIRECTOR SELECTION AND ADMINISTRATION 04/27/2015 Office visit LIZETTE HOFFMAN DIRECTOR SELECTION AND ADMINISTRATION 11/10/2014 Office visit De Kevin MD
--- OUTSIDE RECORDS SUMMARY | 2020-06-05 08:49 | XMS REPORT ---
Author Author Ava HOFFMAN Organization [facility] Physicians oup Address [address] [place], [place] [address] Care Team Providers Care Supervisor Patching Name Role Phone LIZETTE HOFFMAN PCP Unavailable Allergies and Adverse Reactions Name Reaction Notes Augmentin Nausea and Vomiting prednisone Plan of Treatment Planned Activity Comments Planned Date Planned Time Plan/Goal ASSAY THYROID STIM HORMONE 06/18/2016 12:00 AM ASSAY OF FREE THYROXINE 06/18/2016 12:00 AM Medications Active Name Start Date [...] 02/10/2016 12:00 AM Decadron, Per 1 Mg [facility]# [address]-23 Re viewed 02/10/2016 12:00 AM Depo-Medrol 40mg [...] thyroid function test Jun 18 2016 11:11AM Payers Insurance Name Company Name Plan Name Plan Number Policy Number Jimmie cy Group Number Start Date [employer]BS [employer] [place] [id number] Fr combs, 2015 [employer] [place] void N/A BC[employer] [place] void N/A History of Encounters Visit Date Visit Type Provider 06/18/2016 Laboratory LIZETTE OHFFMAN DEVELOPMENT PLANNER 06/11/2016 Laboratory Candace REYNOLDS 06/04/2016 Office visit Candace REYNOLDS 03/04/2016 Office visit Candace REYNOLDS 02/10/2016 Office visit Alexandra Gil APRN 04/27/2015 Office visit LIZETTE HOFFMAN DEVELOPMENT PLANNER 11/10/2014 Office visit De Kevin MD
--- OUTSIDE RECORDS SUMMARY | 2020-06-05 08:49 | XMS REPORT ---
Author Author Ava Farias Organization [facility] Physicians oup Address [address] [facility] [address] [place], [place] [address] Care Team Providers Care Owner Oral Surgeon Name Role Phone Candace Farias PCP Allergies [...] 02/10/2016 12:00 AM Decadron, Per 1 Mg [facility]# [address]-74 Re viewed 02/10/2016 12:00 AM Depo-Medrol 40mg Reviewed 06/11/2016 12:00 AM ROUTINE VENIPUNCTURE Reviewed 06/11/2016 12:00 AM GENERAL HEALTH PANEL Returned 06/11/2016 12:00 AM LIPID PANEL Returned 06/11/2016 12:00 AM ALBUMIN URINE MICROALBUMIN QUANTIATIVE R eturned 06/18/2016 12:00 AM ASSAY THYROID STIM HORMONE Returned 06/18/2016 12:00 AM ASSAY OF FREE THYROXINE Returned Results Summary Data and Description Results 06/11/2016 [...] 49.0 mg/dLLDL (CALC) 164.0 mg/dLTSH 5.980 uIU/mL 06/18/2016 3:14 PM TSH 4.610 uIU/mL History Of Immunizations Not available. History [...] 11:11AM Elevated TSH Jun 26 2016 9:40AM Payers Insurance Name Company Name Plan Name Plan Number Policy Number Jimmie cy Group Number Start Date BCBS Bcbs [facility] [id number] Fr combs, 2015 BCBS Bcbs [facility] void N/A BCBS Bcbs [facility] void N/A History of Encounters Visit Date Visit Type Provider 06/26/2016 Office visit Candace REYNOLDS 06/18/2016 Laboratory LIZETTE HOFFMAN PUBLIC AFFAIRS SPECIALIST 06/11/2016 Laboratory Candace REYNOLDS 06/04/2016 Office visit Candace REYNOLDS 03/04/2016 Office visit Candace REYNOLDS 02/10/2016 Office visit Alexandra Gil PUBLIC AFFAIRS SPECIALIST 04/27/2015 Office visit LIZETTE HOFFMAN PUBLIC AFFAIRS SPECIALIST 11/10/2014 Office visit De Kevin MD
--- OUTSIDE RECORDS SUMMARY | 2020-06-05 08:49 | XMS REPORT ---
Author Author Ava Farias Organization [facility] Physicians oup Address [address] [place], [place] [address] Care Team Providers Care Department Editor Name Role Phone Candace Farias PCP Lizette [...] Decadron, Per [address] [facility]# [address]-41 Re viewed 02/10/2016 12:00 AM Depo-Medrol 40mg [...] cy Group Number Start Date BCBS Bcbs [facility] [id number] Fr combs, 2015 BCBS Bcbs [facility] void N/A BCBS [employer] [place] void N/A History of Encounters Visit Date Visit Type Provider 09/30/2016 Laboratory Candace REYNOLDS 06/26/2016 Office visit Candace MEADOWSP 06/18/2016 Laboratory LIZETTE HOFFMAN INVESTMENT ADVISOR 06/11/2016 Laboratory Candace MEADOWSP 06/04/2016 Office visit Candace REYNOLDS 03/04/2016 Office visit Candace MEADOWSP 02/10/2016 Office visit Alexandra Gil INVESTMENT ADVISOR 04/27/2015 Office visit LIZETTE HOFFMAN INVESTMENT ADVISOR 11/10/2014 Office visit De Kevin MD
--- OUTSIDE RECORDS SUMMARY | 2020-06-05 08:49 | XMS REPORT ---
Author Author [facility] oup Organization [facility] Phys[facility] ou Address [address] [place], [place] [address] Care Team Providers Care Clinical Rehabilitation Aide Name Role Phone PCP Unavailable Allergies and Adverse Reactions Name Reaction Notes Augmentin Nausea and Vomiting prednisone Plan of Treatment Not available. Medications Active Name Start Date Estimated Completion Date SIG Co mments coenzyme Q10 oral capsule 100 mg magnesium oral Tribenzor oral venlafaxine oral capsule,extended release 24hr 75 mg 04/27/2015 take 1 capsule by oral route daily Name Start Date Expiration Date SIG Comments tramadol oral tablet 50 mg clonidine HCl oral tablet 0.1 mg alprazolam oral tablet 0.5 mg atenolol oral tablet 100 mg amlodipine oral tablet 5 mg lisinopril oral tablet 40 mg take 1 table t (40 mg) by oral route once daily ibuprofen oral tablet 100 mg naproxen sodium oral capsule 220 mg niacin oral potassium oral tablet 99 mg Calcium 500 oral Problem List Description Status Onset Hyperlipidemia Active GERD (gastroesophageal reflux disease) Active Depressive Disorder Active Anxiety disorder Active Essential Hypertension Active Vital Signs Date Time BP-Sys(mm[Hg] BP-Nikki(mm[Hg]) HR(bpm) RR(rpm) Temp WT HT HC BMI BSA BMI Percentile O2 Sat(%) 04/27/2015 9:35:00 AM 120 mmHg 60 mmHg 73 bpm 18 rpm 96.6 F 160.25 lbs 66 in 25.86 kg/m2 1.84 m2 97 % Social History Name Description Comments Alcohol Tobacco Former smoker History of Procedures Not available. Results Summary Not available. History Of Immunizations Not available. History of Past Illness Name Date of Onset Comments Anxiety disorder Depressive Disorder Essential Hypertension GERD (gastroesophageal reflux disease) Hyperlipidemia Hyperlipidemia Apr 27 2015 9:37AM GERD (gastroesophageal reflux disease) Apr 27 2015 9:37AM Depressive Disorder Apr 27 2015 9:37AM Anxiety disorder Apr 27 2015 9:37AM Essential Hypertension Apr 27 2015 9:37AM Payers Insurance Name Company Name Plan Name Plan Number Policy Number Jimmie cy Group Number Start Date [employer] [place] [id number] Fr comsb, 2015 [employer] [place] void N/A [employer] [place] void N/A History of Encounters Visit Date Visit Type Provider 04/27/2015 Office visit LIZETTE HOFFMAN TROMBONE SLIDE ASSEMBLER 11/10/2014 Office visit De Kevin MD
--- OUTSIDE RECORDS SUMMARY | 2020-06-05 08:49 | XMS REPORT ---
Author Author Ava Farias Organization [facility] Physicians oup Address [address] [facility] [address] [place], [place] [address] Care Team Providers Care Chair Lift Operator Name Role Phone Candace Farias PCP [...] 1 dropper full under to ngue daily diclofenac sodium 75 mg oral tablet,delayed release [...] 12:00 AM Decadron, Per 1 Mg [facility]# [address]-09 Re viewed 02/10/2016 12:00 AM Depo-Medrol 40mg [...] Group Number Start Date [employer]BS [employer] [place] [id number] Fr id[place], 2015 [employer] [place] void N/A [employer] [place] void N/A History of Encounters Visit Date Visit Type Provider 08/21/2017 Office visit Candace REYNOLDS 03/25/2017 Office visit Candace MEADOWSP 03/24/2017 Laboratory Candace REYNOLDS 01/02/2017 Office visit Candace MEADOWSP 12/27/2016 Laboratory Candace MEADOWSP 09/30/2016 Laboratory Candace MEADOWSP 06/26/2016 Office visit Candace MEADOWSP 06/18/2016 Laboratory LIZETTE HOFFMAN FAMILY SERVICES WORKER 06/11/2016 Laboratory Candace MEADOWSP 06/04/2016 Office visit Candace MEADOWSP 03/04/2016 Office visit Candace MEADOWSP 02/10/2016 Office visit Alexandra Gil FAMILY SERVICES WORKER 04/27/2015 Office visit LIZETTE HOFFMAN FAMILY SERVICES WORKER 11/10/2014 Office visit De Kevin MD
--- OUTSIDE RECORDS SUMMARY | 2020-06-05 08:50 | XMS REPORT ---
Author Author Ava Farias Organization [facility] Address [address] [place], [place] [address] Care Team Providers Care Acid Cutter Name Role Phone Candace Farias PCP [...] Decadron, Per 1 Mg [facility]# [address]-57 Re viewed 02/10/2016 12:00 AM Depo-Medrol 40mg Reviewed Results Summary Not available. History Of [...] 2:46PM Depressive Disorder Jun 04 2016 8:33AM Payers Insurance Name Company Name Plan Name Plan Number Policy Number Jimmie cy Group Number Start Date [employer]BS [employer] [place] [id number] Fr combs, 2015 [employer] [place] void N/A BC[employer] [place] void N/A History of Encounters Visit Date Visit Type Provider 06/04/2016 Office visit Candace REYNOLDS 03/04/2016 Office visit Candace REYNOLDS 02/10/2016 Office visit Alexandra Gil BANDOLEER STRAIGHTENER STAMPER 04/27/2015 Office visit LIZETTE HOFFMAN BANDOLEER STRAIGHTENER STAMPER 11/10/2014 Office visit De Kevin MD
--- OUTSIDE RECORDS SUMMARY | 2020-06-05 08:50 | XMS REPORT ---
Author Author Ava Farias Organization [facility] Address [address] [facility] [address] [place], [place] [address] Care Team Providers Care Transmission Rebuilder Name Role Phone aCndace Farias PCP Lizette Hoffman PreferredProvider Unavailable Allergies [...] 02/10/2016 12:00 AM Decadron, Per 1 Mg [facility]# [address]-48 Re viewed 02/10/2016 12:00 AM Depo-Medrol 40mg [...] cy Group Number Start Date BCBS Bcbs [facility] [id number] Fr lauryn, 2015 BCBS Bcbs [facility] void N/A BCBS Bcbs [facility] void N/A History of Encounters Visit Date Visit Type Provider 03/24/2017 Laboratory Candace REYNOLDS 01/02/2017 Office visit Candace MEADOWSP 12/27/2016 Laboratory Candace MEADOWSP 09/30/2016 Laboratory Candace MEADOWSP 06/26/2016 Office visit Candace MEADOWSP 06/18/2016 Laboratory LIZETTE HOFFMAN PRE KINDERGARTEN TEACHER 06/11/2016 Laboratory Candace MEADOWSP 06/04/2016 Office visit Candace MEADOWSP 03/04/2016 Office visit Candace MEADOWSP 02/10/2016 Office visit Alexandra Gil PRE KINDERGARTEN TEACHER 04/27/2015 Office visit LIZETTE HOFFMAN PRE KINDERGARTEN TEACHER 11/10/2014 Office visit De Kevin MD
--- OUTSIDE RECORDS SUMMARY | 2020-06-05 08:50 | XMS REPORT ---
Author Author Ava Farias Organization [facility] Address [address] [facility] [address] [place], [place] [address] Care Team Providers Care Electrical Project Engineer Name Role Phone Candace Farias PCP Lizette [...] Per 1 Mg [facility]# [address]-17 Re viewed 02/10/2016 12:00 AM Depo-Medrol 40mg [...] Number Start Date BCBS [employer] [place] [id number] Fr iday, 2015 [employer] [place] void N/A [employer] [place] void N/A History of Encounters Visit Date Visit Type Provider 08/21/2017 Office visit Candace REYNOLSD 03/25/2017 Office visit Candace MEADOWSP 03/24/2017 Laboratory Candace REYNOLDS 01/02/2017 Office visit Candace MEADOWSP 12/27/2016 Laboratory Candace MEADOWSP 09/30/2016 Laboratory Candace MEADOWSP 06/26/2016 Office visit Candace MEADOWSP 06/18/2016 Laboratory LIZETTE HOFFMAN SALES CONSULTANT 06/11/2016 Laboratory Candace MEADOWSP 06/04/2016 Office visit Candace MEADOWSP 03/04/2016 Office visit Candace MEADOWSP 02/10/2016 Office visit Alexandra Gil SALES CONSULTANT 04/27/2015 Office visit LIZETTE HOFFMAN SALES CONSULTANT 11/10/2014 Office visit De Kevin MD
--- OUTSIDE RECORDS SUMMARY | 2020-06-05 08:50 | XMS REPORT ---
Author Author Ava Farias Organization [facility] Address [address] [facility] [address] [place], [place] [address] Care Team Providers Care Automobile Damage Appraiser Name Role Phone Candace Farias PCP Lizette Hoffman PreferredProvider Unavailable Allergies and Adverse Reactions Name Reaction Notes Augmentin Nausea and Vomiting prednisone Plan of Treatment Planned Activity Comments Planned Date Planned Time Plan/Goal US BREAST LTD; RT 05/04/2018 12:00 AM Medications Active Name Start [...] AM Decadron, Per 1 Mg [facility]# [address]-01 Re viewed 02/10/2016 12:00 AM Depo-Medrol 40mg [...] 10:48AM Right Mastodynia May 04 2018 10:48AM Payers Insurance Name Company Name Plan Name Plan Number Policy Number Jimmie cy Group Number Start Date BCBS [employer] [place] [id number] lauryn, 2015 [employer] [place] void N/A [employer] [place] void N/A History of Encounters Visit Date Visit Type Provider 05/04/2018 Office visit Candace REYNOLDS 04/03/2018 Office visit Candace REYNOLDS 12/23/2017 Office visit LIZETTE HOFFMAN FACILITIES ENGINEERING MANAGER 08/21/2017 Office visit Candace REYNOLDS 03/25/2017 Office visit Candace REYNOLDS 03/24/2017 Laboratory Candace REYNOLDS 01/02/2017 Office visit Candace REYNOLDS 12/27/2016 Laboratory Candace MEADOWSP 09/30/2016 Laboratory Candace REYNOLDS 06/26/2016 Office visit Candace REYNOLDS 06/18/2016 Laboratory LIZETTE HOFFMAN FACILITIES ENGINEERING MANAGER 06/11/2016 Laboratory Candace REYNOLDS 06/04/2016 Office visit Candace REYNOLDS 03/04/2016 Office visit Candace REYNOLDS 02/10/2016 Office visit Alexandra Gil FACILITIES ENGINEERING MANAGER 04/27/2015 Office visit LIZETTE HOFFMAN FACILITIES ENGINEERING MANAGER 11/10/2014 Office visit De Kevin MD
--- OUTSIDE RECORDS SUMMARY | 2020-06-05 08:50 | XMS REPORT ---
Author Author Ava Farias Organization [facility] Address [address] [facility] [address] [place], [place] [address] Care Team Providers Care Automobile Body Repairer Helper Name Role Phone Candace Farias PCP Lizette [...] 02/10/2016 12:00 AM Decadron, Per 1 Mg [facility]# [address]-94 Re viewed 02/10/2016 12:00 AM Depo-Medrol 40mg [...] 8:15AM Subclinical hypothyroidism Jan 02 2017 10:49AM Payers Insurance Name Company Name Plan Name Plan Number Policy Number Jimmie cy Group Number Start Date BCBS [employer] [place] [id number] Fr combs, 2015 [employer] [place] void N/A [employer] [place] void N/A History of Encounters Visit Date Visit Type Provider 01/02/2017 Office visit Candace REYNOLDS 12/27/2016 Laboratory Candace REYNOLDS 09/30/2016 Laboratory Candace REYNOLDS 06/26/2016 Office visit Candace MEADOWSP 06/18/2016 Laboratory LIZETTE HOFFMAN CRAWLER CRANE OPERATOR 06/11/2016 Laboratory Candace REYNOLDS 06/04/2016 Office visit Candace REYNOLDS 03/04/2016 Office visit Candace REYNOLDS 02/10/2016 Office visit Alexandra Gil CRAWLER CRANE OPERATOR 04/27/2015 Office visit LIZETTE HOFFMAN CRAWLER CRANE OPERATOR 11/10/2014 Office visit De Kevin MD
--- OUTSIDE RECORDS SUMMARY | 2020-06-05 08:50 | XMS REPORT ---
Author Author Ava Farias Organization [facility] Address [address] [facility] [address] [place], [place] [address] Care Team Providers Care Tip Inserter Name Role Phone Candace Farias PCP Allergies and Adverse Reactions Name Reaction Notes Augmentin Nausea and Vomiting prednisone Plan of Treatment Not available. Medications Active Name Start Date Estimated Completion Date SIG Co mments coenzyme Q10 100 mg oral capsule magnesium oral Tribenzor oral venlafaxine 75 mg oral capsule,extended release 24hr 04/27/2015 take 1 capsule by oral route daily triamcinolone acetonide 0.1 % topical cream 03/04/2016 apply a thin layer to the affected area(s) by topical route 2 times per day for no longer than 14 days Name Start Date Expiration Date SIG [...] 99 mg oral tablet Calcium 500 oral Problem List Description Status Onset Hyperlipidemia Active GERD (gastroesophageal reflux disease) Active Depressive Disorder Active Anxiety disorder Active Essential Hypertension Active Vital Signs Date Time BP-Sys(mm[Hg] BP-Nikki(mm[Hg]) HR(bpm) RR(rpm) Temp WT HT HC BMI BSA BMI Percentile O2 Sat(%) 03/04/2016 2:44:00 PM 91 bpm 20 rpm [...] AM Decadron, Per 1 Mg [facility]# [address]-73 Re viewed 02/10/2016 12:00 AM Depo-Medrol 40mg [...] to plants, except food Feb 222015 2:46PM Payers Insurance Name Company Name Plan Name Plan Number Policy Number Jimmie cy Group Number Start Date BCBS Bcbs [facility] [id number] Fr combs, 2015 BCBS Bcbs [facility] void N/A BCBS [employer] [place] void N/A History of Encounters Visit Date Visit Type Provider 03/04/2016 Office visit Candace REYNOLDS 02/10/2016 Office visit Alexandra Gil ENVIRONMENTAL ASSOCIATE 04/27/2015 Office visit LIZETTE HOFFMAN ENVIRONMENTAL ASSOCIATE 11/10/2014 Office visit De Kevin MD
--- OUTSIDE RECORDS SUMMARY | 2020-06-05 08:50 | XMS REPORT ---
Author Author Ava HOFFMAN Organization [facility] Address [address] [place], [place] [address] Care Team Providers Care Duty Engineer Name Role Phone LIZETTE HOFFMAN PCP Unavailable [...] 12:00 AM Decadron, Per 1 Mg [facility]# [address]-15 Re viewed 02/10/2016 12:00 AM Depo-Medrol 40mg [...] Group Number Start Date BCBS [employer] [place] [id number] Fr combs, 2015 [employer] [place] void N/A [employer] [place] void N/A History of Encounters Visit Date Visit Type Provider 06/18/2016 Laboratory LIZETTE HOFFMAN NOTE TELLER 06/11/2016 Laboratory Candace REYNOLDS 06/04/2016 Office visit Candace REYNOLDS 03/04/2016 Office visit Candace REYNOLDS 02/10/2016 Office visit Alexandra Gil APRN 04/27/2015 Office visit LIZETTE HOFFMAN NOTE TELLER 11/10/2014 Office visit De Kevin MD
--- OUTSIDE RECORDS SUMMARY | 2020-06-05 08:51 | XMS REPORT | Continuity of Care Document ---
Demographics Preferred Language Unknown Marital Status Unknown Cheondoism Affiliation Unknown Race Unknown Ethnic Group Unknown Author Organization Unknown Address Unknown Phone Unavailable Allergies Active Description Code Type Severity Reaction Onset Reported/Identified Relationship to Patient Clinical Status Yes No Known Drug Allergies [id number] N/A N/A Yes amoxicillin [id number] Drug Aller gy Unknown Vomiting 05/29/2020 Yes clavulanic acid [id number] D rug Allergy Unknown Vomiting 05/29/2020 Yes prednisone [id number] Drug Allerg y Unknown elevated b/p 05/29/2020 Medications There is no data. 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, bilateral 01/22/2018 W 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, bilateral 01/22/2018 W H52.4 Pres byopia 01/22/2018 W H25.13 Age -related nuclear cataract, bilateral 01/22/2018 W 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, bilateral 01/22/2018 W 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, bilateral 01/22/2018 W H52.4 Pres byopia 01/22/2018 W H25.13 Age -related nuclear cataract, bilateral 01/22/2018 W 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, bilateral 01/22/2018 W H52.13 Augei rangel, bilateral 01/22/2018 W H52.4 Pres byopia 02/04/2018 W H25.13 Age -related nuclear cataract, bilateral 02/04/2018 W 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, bilateral 02/04/2018 W 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, bilateral 02/04/2018 W H52.4 Pres byopia 02/04/2018 W H25.13 Age -related nuclear cataract, bilateral 02/04/2018 W 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, bilateral 02/04/2018 W 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, bilateral 02/04/2018 W H52.4 Pres byopia 02/03/2019 W 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, bilateral 02/03/2019 W H52.4 Pres byopia 02/03/[address] 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 02/03/2019 W 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, bilateral 02/03/2019 W H52.4 Pres byopia 02/03/[address] 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 02/03/2019 W H25.13 Age -related nuclear cataract, bilateral 02/03/2019 W 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, bilateral 02/03/2019 W H52.4 Pres byopia 02/03/[address] 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 02/03/2019 W H25.13 Age -related nuclear cataract, bilateral 02/03/2019 W 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, bilateral 02/03/2019 W H52.4 Pres byopia 02/04/[address] 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 02/04/2019 W H25.13 Age -related nuclear cataract, bilateral 02/04/2019 W 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, bilateral 02/04/2019 W H52.4 Pres byopia 02/04/[address] 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 02/04/2019 W H25.13 Age -related nuclear cataract, bilateral 02/04/2019 W 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, bilateral 02/04/2019 W H52.4 Pres byopia 04/30/2019 P N3000 Acut e cystitis without hematuria 09/02/2019 P [id number] Enc ounter for preprocedural cardiovascular examination 09/02/2019 S [id number] Enc ounter for preprocedural laboratory examination 02/07/2020 W H25.13 Age -related nuclear cataract, bilateral 02/07/2020 W 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, bilateral 02/07/2020 W H52.4 Pres byopia 02/07/2020 W H25.13 Age -related nuclear cataract, bilateral 02/07/2020 W 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, bilateral 02/07/2020 W H52.4 Pres byopia 02/08/2020 W H25.13 Age -related nuclear cataract, bilateral 02/08/2020 W 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, bilateral 02/08/2020 W H52.4 Pres byopia 02/08/2020 W H25.13 Age -related nuclear cataract, bilateral 02/08/2020 W 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, bilateral 02/08/2020 W H52.4 Pres byopia Procedures Code Description [place] [address] OFFI CE/OUTPATIENT VISIT, EST 06/24/2016 55702 EYE EXAM T TREATMENT 12/05/2016 94565 REFR ACTION 12/05/2016 V0040 Prot ection Plan Level 3 12/05/2016 V2020 Visi on svcs frames purchases 12/05/2016 V2750 Anti -reflective coating 12/05/2016 V2781 Prog ressive lens per lens 12/05/2016 V2784 Lens polycarb or equal 12/05/2016 71046 EYE EXAM T TREATMENT 01/22/2018 72755 REFR ACTION 01/22/2018 V0040 Prot ection Plan Level 3 01/22/2018 V2020 Visi on svcs frames purchases 01/22/2018 V2750 Anti -reflective coating 01/22/2018 V2781 Prog ressive lens per lens 01/22/2018 V2784 Lens polycarb or equal 01/22/2018 38147 EYE EXAM T TREATMENT 02/03/2019 66096 REFR ACTION 02/03/2019 85402 EYE EXAM T TREATMENT 02/07/2020 82720 REFR ACTION 02/07/2020 V2020 Visi on svcs frames purchases 02/08/2020 V2781 Prog ressive lens per lens 02/08/2020 V2784 Lens polycarb or equal 02/08/2020 Results Test Result Range Antinuclear Antibodies, IFA - 02/21/19 0 9:44 Antinuclear Antibodies, IFA Negative CCP Antibodies IgG/IgA - 01/14/19 09:44 CCP Antibodies IgG/IgA 5 units 0-19 Coronavirus SARS-CoV-2 SO 2018 - 0 08:00 Coronavirus Ab [Units/volume] in Serum Negative Negative Encounters ACCT No. Visit Date/Time Discharge Status Pt. Type Provider Facility Loc./Unit Complaint [id number] 01/18/2019 20:05:00 Document Registration [id number] 02/08/2020 00:00:00 Document Registration [id number] 02/07/2020 10:00:00 Document Registration [id number] 02/03/2019 10:56:00 Document Registration [id number] 01/22/2018 10:45:00 Document Registration [id number] 01/22/2018 00:00:00 Document Registration [id number] 12/05/2016 09:00:00 Document Registration [id number] 12/05/2016 00:00:00 Document Registration [id number] 06/24/2016 13:00:00 Document Registration [id number] 09/16/2019 08:23:04 Document Registration [id number] 09/02/2019 09:19:00 Document Registration [id number] 04/30/2019 10:25:00 Document Registration [id number] 06/01/2020 05:40:00 020 13:41:00 DIS Outpatient ANDREW KUMAR DPM Q Via [facility] PREOP HALLUX VALGUS RIGHT [id number] 06/05/2020 09:30:00 P EN Preadmit [facility] [id number] 05/29/2020 12:15:19 05/29/2020 23:59: 59 CLS Outpatient Sharon Velasquez [id number] 09/28/2019 16:55:34 09/28/2019 23:59: 59 CLS Outpatient Mery Godfrey [id number] 05/19/2019 15:27:52 05/19/2019 23:59: 59 CLS Outpatient Sharon Velasquez [id number] 05/14/2019 09:45:59 05/14/2019 23:59: 59 CLS Outpatient Sharon Velasquez [id number] 04/30/2019 10:52:31 04/30/2019 23:59: 59 CLS Outpatient Sharon Velasquez [id number] 03/31/2019 11:38:19 03/31/2019 23:59: 59 CLS Outpatient Sharon Velasquez [id number] 01/20/2019 11:54:05 01/20/2019 23:59: 59 CLS Outpatient Candace Farias [id number] 01/14/2019 09:48:15 01/14/2019 23:59: 59 CLS Outpatient Candace Farias [id number] 01/05/2019 10:01:47 01/05/2019 23:59: 59 CLS Outpatient Candace Farias [id number] 06/08/2018 16:54:19 06/08/2018 23:59: 59 CLS Outpatient Candace Farias [id number] 05/04/2018 11:37:17 05/04/2018 23:59: 59 CLS Outpatient Candace Farias [id number] 04/03/2018 09:52:26 04/03/2018 23:59: 59 CLS Outpatient Candace Farias [id number] 12/23/2017 10:24:20 12/23/2017 23:59: 59 CLS Outpatient LIZETTE HOFFMAN [id number] 08/21/2017 15:08:50 08/21/2017 23:59: 59 CLS Outpatient Candace Farias [id number] 03/25/2017 11:47:59 03/25/2017 23:59: 59 CLS Outpatient Candace Farias [id number] 03/25/2017 11:41:54 03/25/2017 23:59: 59 CLS Outpatient Candace Farias [id number] 03/24/2017 09:09:58 03/24/2017 23:59: 59 CLS Outpatient Candace Farias [id number] 01/02/2017 11:37:12 01/02/2017 23:59: 59 CLS Outpatient Candace Farias [id number] 12/27/2016 09:06:53 12/27/2016 23:59: 59 CLS Outpatient Candace Farias [id number] 06/26/2016 10:22:42 06/26/2016 23:59: 59 CLS Outpatient Candace Farias [id number] 06/18/2016 11:52:35 06/18/2016 23:59: 59 CLS Outpatient LIZETTE HOFFMAN [id number] 06/11/2016 09:05:50 06/11/2016 23:59: 59 CLS Outpatient Candace Farias [id number] 06/11/2016 09:03:41 06/11/2016 23:59: 59 CLS Outpatient LIZETTE HOFFMAN [id number] 06/04/2016 09:26:34 06/04/2016 23:59: 59 CLS Outpatient Candace Farias [id number] 02/10/2016 13:34:05 02/10/2016 23:59: 59 CLS Outpatient Alexandra Gil [id number] 07/03/2015 21:48:48 07/03/2015 23:59: 59 CLS Outpatient LIZETTE HOFFMAN [id number] 11/21/2014 15:03:17 11/21/2014 23:59: 59 CLS Outpatient De Kevin [id number] 01/17/2019 21:05:00 Document Registration
--- OUTSIDE RECORDS SUMMARY | 2020-06-05 08:51 | XMS REPORT ---
Author Ava Ascencio Organization [facility] Address [address] [place], [place] [address] Care Team Providers Care E Commerce Marketing Manager Name Role Phone Alexandra Gil PCP Allergies and Adverse Reactions Name Reaction [...] HC BMI BSA BMI Percentile O2 Sat(%) 02/10/2016 12:44:00 PM 66 bpm 20 rpm [...] 02/10/2016 12:00 AM Decadron, Per 1 Mg [facility]# [address]-22 Re viewed 02/10/2016 12:00 AM Depo-Medrol 40mg [...] 9:37AM Contact Dermatitis Feb 10 2016 12:49PM Payers Insurance Name Company Name Plan Name Plan Number Policy Number Jimmie cy Group Number Start Date BCBS [employer] [place] [id number] Fr gallito, 2015 BCBS [employer] [place] void N/A BCBS Bcbs [facility] N/A History of Encounters Visit Date Visit Type Provider 02/10/2016 Office visit Alexandra Gil BOILER ATTENDANT 04/27/2015 Office visit LIZETTE HOFFMAN BOILER ATTENDANT 11/10/2014 Office visit De Kevin MD
--- OUTSIDE RECORDS SUMMARY | 2020-06-05 08:51 | XMS REPORT ---
Author Author Ava Farias Organization [facility] Address [address] [place], [place] [address] Care Team Providers Care Dulite Machine Bluer Name Role Phone Candace Farias PCP Allergies [...] 12:00 AM Decadron, Per 1 Mg [facility]# [address]-88 Re viewed 02/10/2016 12:00 AM Depo-Medrol 40mg [...] Start Date BCBS [employer] [place] [id number] [facility], 2015 BCBS [employer] [place] void N/A BC[place] [place] void N/A History of Encounters Visit Date Visit Type Provider 06/11/2016 Laboratory Candace REYNOLDS 06/04/2016 Office visit Candace REYNOLDS 03/04/2016 Office visit Candace REYNOLDS 02/10/2016 Office visit Alexandra Gil NAIL CUTTER 04/27/2015 Office visit LIZETTE HOFFMAN NAIL CUTTER 11/10/2014 Office visit De Kevin MD
--- OUTSIDE RECORDS SUMMARY | 2020-06-05 08:51 | XMS REPORT ---
Author Author Ava Farias Organization [facility] Address [address] [place], [place] [address] Care Team Providers Care Yarn Mercerizer Operator Helper Name Role Phone Candace Farias PCP [...] by oral route 2 times per day Name Start [...] Per 1 Mg [facility]# [address]-79 Re viewed 02/10/2016 12:00 AM Depo-Medrol 40mg [...] Number Start Date BCBS [employer] [place] [id number] Fr iday, 2015 BCBS [employer] [place] void N/A BCBS [employer] [place] void N/A History of Encounters Visit Date Visit Type Provider 08/21/2017 Office visit Candace REYNOLDS 03/25/2017 Office visit Candace MEADOWSP 03/24/2017 Laboratory Candace REYNOLDS 01/02/2017 Office visit Candace REYNOLDS 12/27/2016 Laboratory Candace MEADOWSP 09/30/2016 Laboratory Candace MEADOWSP 06/26/2016 Office visit Candace MEADOWSP 06/18/2016 Laboratory LIZETTE HOFFMAN BRICK MOLDER HAND 06/11/2016 Laboratory Candace MEADOWSP 06/04/2016 Office visit Candace MEADOWSP 03/04/2016 Office visit Candace REYNOLDS 02/10/2016 Office visit Alexandra Gil BRICK MOLDER HAND 04/27/2015 Office visit LIZETTE HOFFMAN BRICK MOLDER HAND 11/10/2014 Office visit De Kevin MD
--- OUTSIDE RECORDS SUMMARY | 2020-06-05 08:51 | XMS REPORT ---
Author Author Ava HOFFMAN Organization [facility] Address [address] [place], [place] [address] Care Team Providers Care Policy Officer Name Role Phone LIZETTE HOFFMAN PCP Unavailable [...] Mg [facility]# [address]-37 Re viewed 02/10/2016 12:00 AM Depo-Medrol 40mg [...] Group Number Start Date BCBS [employer] [place] [id number] [facility], 2015 BCBS [employer] [place] void N/A [employer] [place] void N/A History of Encounters Visit Date Visit Type Provider 06/18/2016 Laboratory LIZETTE HOFFMAN REMOTE SENSING ADVISOR 06/11/2016 Laboratory Candace REYNOLDS 06/04/2016 Office visit Candace REYNOLDS 03/04/2016 Office visit Candace REYNOLDS 02/10/2016 Office visit Alexandra Gil REMOTE SENSING ADVISOR 04/27/2015 Office visit LIZETTE HOFFMAN REMOTE SENSING ADVISOR 11/10/2014 Office visit De Kevin MD
--- OUTSIDE RECORDS SUMMARY | 2020-06-05 08:51 | XMS REPORT ---
Author Author Ava Farias Organization [facility] o[facility] Address [address] [place], [place] [address] Care Team Providers Care Materials Branch Chief Name Role Phone Candace Farias PCP Lizette [...] 02/10/2016 12:00 AM Decadron, Per 1 Mg [facility]# [address]-13 Re viewed 02/10/2016 12:00 AM Depo-Medrol 40mg [...] Number Start Date BCBS [employer] [place] [id number] [facility], 2015 BCBS [employer] [place] void N/A BC[employer] [place] void N/A History of Encounters Visit Date Visit Type Provider 05/04/2018 Office visit Candace REYNOLDS 04/03/2018 Office visit Candace REYNOLDS 12/23/2017 Office visit LIZETTE HOFFMAN PRIME BROKER 08/21/2017 Office visit Candace REYNOLDS 03/25/2017 Office visit Candace REYNOLDS 03/24/2017 Laboratory Candace REYNOLDS 01/02/2017 Office visit Candace REYNOLDS 12/27/2016 Laboratory Candace REYNOLDS 09/30/2016 Laboratory Candace REYNOLDS 06/26/2016 Office visit Candace REYNOLDS 06/18/2016 Laboratory LIZETTE HOFFMAN PRIME BROKER 06/11/2016 Laboratory Candace REYNOLDS 06/04/2016 Office visit Candace REYNOLDS 03/04/2016 Office visit Candace REYNOLDS 02/10/2016 Office visit Alexandra Gil PRIME BROKER 04/27/2015 Office visit LIZETTE HOFFMAN APRN 11/10/2014 Office visit De Kevin MD
--- OUTSIDE RECORDS SUMMARY | 2020-06-05 08:51 | XMS REPORT ---
Author Author Ava Farias Organization [facility] Address [address] [place], [place] [id number] Care Team Providers Care Deputy Administrator Name Role Phone Candace Farias PCP Lizette [...] Mg [facility]# [id number] Re viewed 02/10/2016 12:00 AM Depo-Medrol 40mg [...] cy Group Number Start Date [employer]BS [employer] [facility] [id number] [place] com[place], 2015 [employer] [place] void N/A [employer] [facility] void N/A History of Encounters Visit Date Visit Type Provider 12/27/2016 Laboratory Candace MEADOWSP 09/30/2016 Laboratory Candace MEADOWSP 06/26/2016 Office visit Candace MEADOWSP 06/18/2016 Laboratory LIZETTE HOFFMAN SAND OPERATOR 06/11/2016 Laboratory Candace REYNOLDS 06/04/2016 Office visit Candace REYNOLDS 03/04/2016 Office visit Candace REYNOLDS 02/10/2016 Office visit Alexandra Gil SAND OPERATOR 04/27/2015 Office visit LIZETTE HOFFMAN SAND OPERATOR 11/10/2014 Office visit De Kevin MD
[2020-06-05] MEDS: LACTATED RINGERS 1,000 ML IV PRN ×2 (09:06→10:52)
--- NOTE | 2020-06-05 09:53 | Progress Note-Pre Operative ---
Pre-Operative Progress Note H&P Reviewed The H&P was reviewed, patient examined and no changes noted. Date Seen by Provider: Jun 05, 2020 Time Seen by Provider: :53 Date H&P Reviewed: Jun 05, 2020 Time H&P Reviewed: :53 Pre-Operative Diagnosis: Hallux Valgus Right ANDREW KUMAR DPM Jun 05, 2020 09:53
[2020-06-05] MEDS ORDERED: SEVOFLURANE (ULTANE) 15 ML INHAL SOLN ONE ×4 (09:55→10:52)
[2020-06-05] MEDS ORDERED: ONDANSETRON 4 MG/2 ML (SDV) Z0FRAN ONE (09:56)
[2020-06-05] MEDS ORDERED: ONDANSETRON 4 MG/2 ML (SDV) Z0FRAN IVP PRN (10:15)
[2020-06-05] MEDS ORDERED: morphine INJ 10 MG/ML 1ML (SYR OR VIAL) IVP ONE (10:15)
[2020-06-05] MEDS ORDERED: fentaNYL INJECTION 100 MCG/2 ML AMP IVP ONE (10:15)
[2020-06-05] MEDS ORDERED: LACTATED RINGERS 1,000 ML IV SCH (11:02)
--- NOTE | 2020-06-05 11:02 | Progress Note-Post Operative ---
Post-Operative Progess Note Surgeon (s)/University Administrative Assistant (s) Surgeon ANDREW KUMAR DPM University Administrative Assistant: none Pre-Operative Diagnosis Hallux Valgus Right Post-Operative Diagnosis same Procedure & Operative Findings Date of Procedure 06/05/20 Procedure Performed/Findings Delonte-Patricio Bunionectomy Right Anesthesia Type General Estimated Blood Loss Estimated blood loss (mL): Mininmal Specimens/Packing Specimens Removed None ANDREW KUMAR DPM Jun 05, 2020 11:02
[2020-06-05] MEDS ORDERED: HYDR-83 PO (11:08)
[2020-06-05] MEDS ORDERED: CLIN150C2 PO (11:08)
[2020-06-05] MEDS ORDERED: HYDROcodone/APAP 5 MG/325 MG (LORTAB) TAB PO PRN (11:15)
[2020-06-05] MEDS ORDERED: HYDROcodone/APAP 5 MG/325 MG (LORTAB) TAB ONE (12:40)
--- NOTE | 2020-06-05 12:50 | Diagnostic Imaging Report ---
INDICATION: Postop hallux valgus surgery. COMPARISON: None FINDINGS: Frontal and lateral radiographic views of the right foot were obtained. There are postsurgical changes of previous hallux valgus repair. Orthopedic nail is noted traversing the distal margins of the 1st metatarsal. Cerclage wires also seen along the medial margins of the 1st proximal phalanx. No unexpected radiopaque foreign bodies are seen. Osteotomy defects are noted. There is otherwise no acute fracture or dislocation. IMPRESSION: 1. Postsurgical changes of right hallux valgus repair as described above. Dictated by: Dictated on workstation # [id number]
--- NOTE | 2020-06-05 13:38 | Physical Therapy Ortho Eval ---
PT Orthopedic Evaluation Type of Surgery hallux valgus right Prior Level of Function Current Living Status: Alone (family nearby) Locomotion (Upon Admit): Independent Established Durable Medical Eq: Crutches Subjective Subjective Agrees to PT. Reports she also has access to a walker Entry Into Home: Ramp Motor Control Motor Control: Motor Control WNL ROM ROM: WFL Strength Strength: WFL Transfer Transfers (B, C, W/C) (FIM): 4 (6 post eval) Gait Gait Assistive Device: Crutches Right Lower Extremity: Right Weight Bearing Status RLE: Non Weight Bearing Left Lower Extremity: Left Weight Bearing Status LLE: Full Weight Bearing Other Weight Bearing Inst.: Heel contact for transfers and balance only, right foot Gait (FIM): 4 (6 post evaL) Distance (FIM): 3=150 ft Summary/Comments Pt able to maintain NWB right; safe gait on level surfaces and up/down a step. Treatment Rendered Treatment: Gait Train, Step Train Assessment/Goals Goal Time Frame: 1 Visit Plan Treatment Plan: Discharge PT/Family Agrees to Plan: Yes Time Time In: 1310 Time Out: 1325 Total Billed Treatment Time: 15 Billed Treatment Time visit EVL 15 MO RODRIGUEZ PT Jun 05, 2020 13:38
--- NOTE | 2020-06-05 16:32 | OPERATIVE REPORT ---
DATE OF SERVICE: 06/05/2020 SURGEON: Andrew Kumar DPM. PREOPERATIVE DIAGNOSIS: Hallux abductovalgus metatarsal primus varus, right foot. POSTOPERATIVE DIAGNOSIS: Hallux abductovalgus metatarsal primus varus, right foot. PROCEDURE: Modified Delonte-Patricio bunionectomy, right foot. WOUND CLASS: Clean. ANESTHESIA: General. HEMOSTASIS: Pneumatic thigh tourniquet at 250 mmHg. INDICATIONS: This 65-year-old female presents complaining of painful bunion, right foot. Conservative therapy has met with unsatisfactory results and the patient is agreeable to surgical intervention after risks and complications were discussed at length. No guarantees were extended to the patient and she is willing to proceed. DESCRIPTION OF PROCEDURE: The patient was brought back to the operating table, placed in secure supine position. Appropriate timeout was performed. General anesthetic was then induced. A pneumatic thigh tourniquet was placed on the right lower extremity. The right foot was anesthetized in a Emmanuel block utilizing 10 mL of 0.25% Marcaine. The right foot was then prepped and draped in normal sterile manner. The right foot was then elevated, allowed to exsanguinate after which the tourniquet was inflated to 250 mmHg. Attention was then directed to the dorsal aspect of the right first metatarsophalangeal joint area where a 6 cm longitudinal linear incision was created. The incision was deepened in the same plane with great care to identify and retract all vital neurovascular structures. Only necessary blood vessels were cauterized as encountered. Longitudinal capsulotomy was performed exposing the hypertrophic medial eminence to the first metatarsal head, which was resected utilizing power sagittal saw. Next, blunt dissection was carried out into the first intermetatarsal space where a lateral release was performed. The conjoint tendon of the adductor hallucis was identified and released. The lateral capsulorrhaphy was performed as well as a release of the fibular sesamoidal ligament. The hallux was then forcibly adducted releasing and fibers holding in its abnormal position. Utilizing a power sagittal saw, a Chevron-type osteotomy was performed from medial to lateral at the distal aspect of the first metatarsal allowing the capital fragment to translocate laterally and was fixated in its corrected position utilizing a 0.062 threaded K-wire driven from dorsal proximal to plantar distal with great care not to penetrate the articular cartilage. The K-wire was cut flush with the dorsal aspect of the first metatarsal and the head of the first metatarsal was further contoured and smoothed with a power sagittal saw and power bur. Attention was then directed to the diaphysis of the proximal phalanx of the right hallux where a wedge of bone was resected with the base medial and the lateral cortices held intact. Prior to this, a subperiosteal dissection was carried out. Once the wedge of bone was resected, two missile control pilot holes were created at the dorsal medial aspect of the osteotomy after which a 28-gauge monofilament wire was passed through the missile control pilot hole securing the osteotomy in a closed position. Excellent bony apposition and fixation was appreciated throughout the procedure. The wound was flushed with copious amounts of normal saline throughout the procedure as well. Postoperative closure included 3-0 Vicryl for deep closure, 4-0 Vicryl for subcutaneous closure and 4-0 Prolene in a horizontal mattress type stitch for skin closure. Postoperative injection consisted of 10 mL of 0.5% Marcaine plain injected in a Emmanuel block. Postoperative dressing consisted of Betadine soaked Adaptic, sterile 4 x 4, sterile Kerlix, all secured with a Coban wrap. The patient tolerated the anesthesia and procedure well and was transported from the operating room to the recovery area with vital signs stable and vascular status intact to all digits of the right foot. Postoperative instructions were dispensed to the patient as well as prescription for hydrocodone and clindamycin. She will follow up in my office in 10 days' period of time or sooner if necessary. Job ID: [id number] DocumentID: [id number] Dictated Date: 06/05/2020 11:14:52 Soil Science Professor Date: 06/05/2020 16:31:17 Dictated By: ANDREW KUMAR DPM
== END 2020-06-05 13:22 | disposition home or self-care (01) ==
LOC: SDC 07:59
PROVIDERS: ATTEND Podiatrist Foot & Ankle Surgery
DX: M20.11 Hallux valgus (acquired), right foot (principal); Z11.2 Encounter for screening for other bacterial diseases; F41.9 Anxiety disorder, unspecified; F32.9 Major depressive disorder, single episode, unspecified; I10 Essential (primary) hypertension; K21.9 Gastro-esophageal reflux disease without esophagitis; E78.5 Hyperlipidemia, unspecified; M19.041 Primary osteoarthritis, right hand; E02 Subclinical iodine-deficiency hypothyroidism; Z79.890 Hormone replacement therapy; Z79.899 Other long term (current) drug therapy; Z87.891 Personal history of nicotine dependence; Z88.1 Allergy status to other antibiotic agents; Z88.8 Allergy status to other drugs, medicaments and biological substances; Z88.0 Allergy status to penicillin
CPT/HCPCS: 28299; 73620; 87081; 97161; C1713

== ENCOUNTER → 2022-07-08 | Outpatient (CLI) | payer MEDICARE ==
[~2022-07-08] VITALS: Ht 167.6 cm; Wt 68.5 kg
[~2022-07-08] MED LIST changes: +ACHD5005 PO; +AMLO-250 PO; -AMLO5TAB9 PO; +CLIN150C2 PO; -LISI1TAB25 PO; +LISI1TAB46 PO; +VNL75T PO
== END | disposition home or self-care (01) ==
LOC: PREOP 05:32
PROVIDERS: ATTEND Podiatrist Foot & Ankle Surgery
DX: Z01.818 Encounter for other preprocedural examination (principal)

== ENCOUNTER 2022-07-15 06:13 | Day surgery (SDC) | payer MEDICARE ==
[2022-07-15] VITALS (11 sets, daily range): BP systolic 107–138; BP diastolic 71–86
[~2022-07-15] VITALS: Ht 167 cm; Wt 68.5 kg
[~2022-07-15 06:13] MED LIST changes: -VNL75T PO
[2022-07-15] MEDS ORDERED: LACTATED RINGERS 1,000 ML IV PRN (06:45)
[2022-07-15] MEDS ORDERED: ceFAZolin INJECTION 1,000 MG VIAL IV ONE (06:45)
[2022-07-15] MEDS ORDERED: VNL75T PO (06:53)
[2022-07-15] MEDS ORDERED: LIDOCAINE PF 2% 5 ML (XYLOCAINE) VIAL ONE (07:16)
[2022-07-15] MEDS ORDERED: MIDAZOLAM 2 MG/2 ML (VERSED) VIAL ONE (07:16)
[2022-07-15] MEDS ORDERED: LIDOCAINE 1% INJ 20 ML VIAL ONE (07:16)
[2022-07-15] MEDS ORDERED: SEVOFLURANE (ULTANE) 15 ML INHAL SOLN ONE ×2 (07:16→09:15)
[2022-07-15] MEDS ORDERED: proPOfol 200 MG/20 ML (DIPRIVAN) VIAL IV ONE (07:16)
[2022-07-15] MEDS ORDERED: fentaNYL INJ 100 MCG/2 ML AMP ONE (07:16)
[2022-07-15] MEDS ORDERED: ONDANSETRON 4 MG/2 ML (SDV) Z0FRAN ONE (07:16)
--- NOTE | 2022-07-15 07:45 | Progress Note-Pre Operative ---
Pre-Operative Progress Note Date of Available H&P: Jul 15, 2022 Date H&P Reviewed: Jul 15, 2022 Time H&P Reviewed: 07:45 Pre-Operative Diagnosis: Hallux Valgus, exostosis, left foot ANDREW KUMAR DPM Jul 15, 2022 07:45
--- NOTE | 2022-07-15 09:20 | Anesthesia-General Post-Op ---
General Patient Condition Mental Status/LOC: Same as Preop Cardiovascular: Satisfactory Nausea/Vomiting: Absent Respiratory: Satisfactory Pain: Controlled Complications: Absent Post Op Complications Complications None Follow Up Care/Instructions Patient Instructions None needed. Anesthesia/Patient Condition Patient Condition Patient is doing well, no complaints, stable vital signs, no apparent adverse anesthesia problems. No complications reported per nursing. QUINTON MOROCHO CRNA Jul 15, 2022 09:20
[2022-07-15] MEDS ORDERED: morphine INJ 10 MG/ML 1ML (SYR OR VIAL) IVP ONE (09:30)
[2022-07-15] MEDS ORDERED: PROMETHAZINE INJ 25 MG/ML (PHENERGAN) AMP IVP ONE (09:30)
[2022-07-15] MEDS ORDERED: ONDANSETRON 4 MG/2 ML (SDV) Z0FRAN IVP PRN (09:30)
[2022-07-15] MEDS ORDERED: MEPERIDINE (DEMEROL) INJ 50 MG/ML IVP ONE (09:30)
--- NOTE | 2022-07-15 09:32 | Progress Note-Post Operative ---
Post-Operative Progess Note Surgeon (s)/Glassware Finisher (s) Surgeon ANDREW KUMAR DPM Glassware Finisher: none Pre-Operative Diagnosis Hallux Valgus, exostosis, left foot Post-Operative Diagnosis Hallux Valgus, Ganglionic Cyst, left foot Procedure & Operative Findings Date of Procedure 07/15/22 Procedure Performed/Findings Delonte Patricio Bunionectomy, Removal of soft tissue lesion, left foot Anesthesia Type General Estimated Blood Loss Estimated blood loss (mL): minimal Specimens/Packing Specimens Removed soft tissue left foot ANDREW KUMAR DPM Jul 15, 2022 09:32
[2022-07-15] MEDS ORDERED: ACHD5005 PO (09:34)
[2022-07-15] MEDS ORDERED: CLIN150C2 PO (09:34)
[2022-07-15] MEDS ORDERED: HYDROcodone/APAP 5 MG/325 MG (LORTAB) TAB PO PRN (09:45)
[2022-07-15] MEDS ORDERED: LACTATED RINGERS 1,000 ML IV SCH (09:45)
--- NOTE | 2022-07-15 13:47 | OPERATIVE REPORT ---
DATE OF SERVICE: 07/15/2022 SURGEON: Andrew Kumar DPM. PREOPERATIVE DIAGNOSES: 1. Hallux abductovalgus metatarsal primus varus, left. 2. Soft tissue lesion, left foot. POSTOPERATIVE DIAGNOSES: 1. Hallux abductovalgus metatarsal primus varus, left. 2. Soft tissue lesion, left foot. PROCEDURES: 1. Delonte-Patricio type bunionectomy, left foot. 2. Excision of soft tissue lesion, left foot. WOUND CLASS: Clean. ANESTHESIA: General. HEMOSTASIS: Pneumatic thigh tourniquet at 250 mmHg. INDICATIONS: This is a 67-year-old female presents complaining of a painful bunion as well as painful soft tissue lesion, left foot. Conservative therapy has met with unsatisfactory results and the patient is agreeable to surgical intervention after risks and complications were discussed at length. No guarantees were extended to the patient and she is willing to proceed. DESCRIPTION OF PROCEDURE: The patient was brought back to the operating table, placed in secure supine position. A general anesthetic was then induced. Utilizing aseptic technique, a Emmanuel block was performed utilizing 8 mL of 1:1 mixture of 1% Xylocaine and 0.25% Marcaine, also a couple mL of the same mixture was utilized to anesthetize the dorsal lateral aspect of the left foot around this soft tissue lesion. A pneumatic thigh tourniquet was placed on the left lower extremity over several layers of padding. Appropriate timeout was performed. The left foot was then prepped and draped in normal sterile manner. The left foot was then elevated, allowed to exsanguinate after which the tourniquet was inflated to 250 mmHg. Attention was then directed to the dorsal aspect of the left first metatarsophalangeal joint where a 6 cm longitudinal linear incision was created. The incision was deepened in same plane with great care to identify and retract all vital neurovascular structures. Only necessary blood vessels were cauterized as encountered. The incision was deepened down to the capsular tissue where a longitudinal capsulotomy was performed. The capsular tissue was reflected noting a dorsal exostosis to the first metatarsal head as well as a medial eminence to the same. The dorsal exostosis and a medial eminence of the first metatarsal head were resected utilizing a power sagittal saw, followed by a power bur. Next, blunt dissection was carried out into the first intermetatarsal space where a lateral release was performed. A lateral capsulorrhaphy was performed as well as release of the conjoint tendon of the adductor hallucis and a fibular sesamoidal ligament release was also performed. Attention was then directed to the medial aspect of the first metatarsal where a Chevron-type osteotomy was performed from medial to lateral. This allowed the capital fragment to translocate laterally and was fixated in its corrected position utilizing a 0.062 threaded K-wire from dorsal proximal to plantar distal. Excellent bony apposition and fixation was appreciated at this time. The K-wire was cut at the dorsal aspect of its entry point smoothed with the cortices. The head and neck of the first metatarsal were further contoured and smoothed with a power bur and a power sagittal saw. The wound was flushed with copious amounts of normal saline. Attention was then directed to the proximal phalanx of the left hallux where an Patricio type procedure was performed. Subperiosteal dissection was carried out. Utilizing a power sagittal saw, a wedge of bone was resected with the base medial and lateral cortices held intact. Once the wedge of bone was resected, the gap was closed, improving the alignment of the left hallux. Two airplane pilot chief holes were created at the dorsal medial aspect of the osteotomy after which a 28-gauge monofilament wire examination a 28-gauge monofilament wire was passed through the airplane pilot chief hole securing the osteotomy in a closed position. The wound was flushed with copious amounts of normal saline throughout the procedure. Good reduction of the misalignment of the left first ray was noted at this time. The wound was flushed with copious amounts of normal saline once again after which closure was performed in layers. Deep closure was performed with 3-0 Vicryl, superficial with 4-0 Vicryl, skin closure with 4-0 Prolene in a horizontal mattress type stitch. Attention was then directed to the dorsal aspect of the base of the fifth metatarsal, left foot where a 3 cm longitudinal linear incision was created. The incision was deepened in the same plane with blunt dissection with great care to identify and retract all vital neurovascular structures. The incision was deepened down bluntly to a soft tissue lesion, which was lobulated had 2 significant components to it proximal lateral lobular indurated lesions, which appear to have some clear fluid within. These were cleared from its soft tissue attachments with blunt and sharp dissection. They are grossly identified as a ganglionic cyst. They were sent for gross and microscopic evaluation. The wound had no further pathology identified. The area was cleansed, after which closure was performed in layers. Deep closure was performed with 4-0 Vicryl, superficial with 4-0 Vicryl, skin closure with 4-0 Prolene in a horizontal mattress type stitch. Postoperative injection consisted of 10 mL of 0.25% Marcaine injected in a local infusion to the surgical sites. Postoperative injections also included 10 mg of dexamethasone injected into the first intermetatarsal space as well as into the area of the ganglionic cyst or soft tissue lesion, left foot. Postoperative dressing consisted of Betadine soaked Adaptic, sterile 4 x 4, sterile Kerlix all secured with Coban wrap. The patient tolerated the anesthesia and procedure well and was transported from the operating room to the recovery room with vital signs stable and vascular status intact to all digits of the left foot. She is to be nonweightbearing on the left lower extremity with heel contact for transfers and balance only. She was given a prescription for clindamycin as well as hydrocodone. We will see her back in the office in approximately 10 days' period of time or sooner if necessary. Job ID: [id number] DocumentID: [id number] Dictated Date: 07/15/2022 09:43:17 Broiler Supervisor Date: 07/15/2022 13:47:09 Dictated By: ANDREW KUMAR DPM
--- NOTE | 2022-07-15 14:05 | Diagnostic Imaging Report ---
INDICATION: Left foot pain. FINDINGS: 2 views. There has been osteotomy with bunionectomy of the 1st metatarsal. There is pin present within the distal metatarsal with good alignment. There is a cerclage wire in the proximal phalanx and osteotomy site. IMPRESSION: Satisfactory appearing bunionectomy. Dictated by: Dictated on workstation # [id number]
== END 2022-07-15 11:15 | disposition home or self-care (01) ==
LOC: SDC 06:13
PROVIDERS: ATTEND Podiatrist Foot & Ankle Surgery
DX: M67.472 Ganglion, left ankle and foot (principal); M20.12 Hallux valgus (acquired), left foot; Z79.899 Other long term (current) drug therapy
CPT/HCPCS: 73620; 87081; 88304